=== PATIENT | female | born 1980 | race Caucasian/White ===

== ENCOUNTER 2017-02-10 17:38 | Emergency (ER) | payer OTHER, SELFPAY | END 2017-02-10 18:28 | disposition home or self-care (01) | PROVIDERS: Emergency Provider Nurse Practitioner; Visit Provider Nurse Practitioner | DX: O99.511 Diseases of the respiratory system complicating pregnancy, first trimester (principal); J11.1 Influenza due to unidentified influenza virus with other respiratory manifestations; O99.331 Smoking (tobacco) complicating pregnancy, first trimester; F17.210 Nicotine dependence, cigarettes, uncomplicated; Z3A.10 10 weeks gestation of pregnancy; Z79.899 Other long term (current) drug therapy | CPT/HCPCS: 87804; 99201 ==

== ENCOUNTER → 2017-12-26 18:20 | Outpatient (CLI) | payer OTHER, SELFPAY ==
[2017-12-26 19:00] LABS: Basophils # 0.1 K/mm3 (0-0.2); Basophils % 0.6 % (0.1-2.0); Eosinophils # 0.1 K/mm3 (0.0-0.4); Eosinophils % 0.9 % (0.1-12.0); Hematocrit 38.6 % (37.0-47.0); Hemoglobin 12.6 g/dL (12.2-16.2); Lymphocytes # 2.6 K/mm3 (0.7-4.5); Lymphocytes % 30.2 K/mm3 (10-50); Mean Corpuscular HGB Conc 32.6 g/dL (31.8-35.4); Mean Corpuscular Hemoglobin 29.9 pg (27.0-31.2); Mean Corpuscular Volume 91.8 fl (81-99); Mean Platelet Volume 9.3 fl (7.4-10.4); Monocytes # 0.4 K/mm3 (0.1-1.0); Monocytes % 4.7 % (1.7-9.3); Neutrophils # 5.4 K/mm3 (1.8-7.8); Neutrophils % 63.6 % (37.0-80.0); Platelet Count 247 K/mm3 (142-424); Red Cell Distribution Width 13.6 % (11.5-17.5); White Blood Count 8.5 K/mm3 (4.8-10.8)
[2017-12-26 19:37] LABS: Alanine Aminotransferase 45 U/L (12-78); Albumin Level 3.8 gm/dL (3.4-5.0); Albumin/Globulin Ratio 1.2 (1.1-1.8); Alkaline Phosphatase 108 U/L (46-116); Aspartate Amino Transferase 21 U/L (15-37); Bilirubin,Total 0.1 mg/dL (0.2-1.0); Blood Urea Nitrogen 16 mg/dL (7-18); Calcium 8.7 mg/dL (8.5-10.1); Carbon Dioxide 23 mmol/L (21.0-32.0); Chloride 107 mmol/L (98-107); Chol/HDL Ratio 2.9 (1-3.5); Cholesterol 136 mg/dL (140-200); Creatinine,Serum 1.04 mg/dL (0.55-1.02); Estimated Glomerular Filt Rate 59 ml/min (>60); GFR (African American) 72 ML/MIN (>60); Globulin 3.3 gm/dl (1.3-3.2); Glucose 101 mg/dL (74-106); HDL Cholesterol 47 mg/dL (29-89); LDL Cholesterol 39 mg/dL (0-130); Sodium 142 mmol/L (136-145); T4 (Thyroxine) 6.9 ug/dl (4.7-13.3); Total Protein,Serum 7.1 gm/dL (6.4-8.2); Triglycerides 250 mg/dL (30-200); VLDL Cholesterol 50 mg/dL (0-40)
[2017-12-28 14:43] LABS: Vitamin D 25 Hydroxy 25.4 ng/mL (30.0-100.0)
== END ==
PROVIDERS: Visit Provider Nurse Practitioner Family
DX: R53.83 Other fatigue (principal); Z23 Encounter for immunization
CPT/HCPCS: 80053; 80061; 82652; 84436; 84443; 85025

== ENCOUNTER → 2018-02-07 07:49 | Outpatient (CLI) | payer OTHER, SELFPAY ==
[2018-02-07 09:30] LABS: Erythrocyte Sedimentation Rate 14 mm/hr (0-20)
[2018-02-07 09:36] LABS: C-Reactive Protein 0.3 mg/L (0.0-0.9)
[2018-02-08 10:40] LABS: RA Latex Turbid. <10.0 IU/mL (0.0-13.9)
[2018-02-08 13:17] LABS: Anti-Centromere B Antibodies <0.2 AI (0.0-0.9); Anti-Jo-1 <0.2 AI (0.0-0.9); Anti-Smith Antibody 0.3 AI (0.0-0.9); Antichromatin Antibodies <0.2 AI (0.0-0.9); Antiscleroderma-70 Antibodies <0.2 AI (0.0-0.9); RNP Antibodies 0.4 AI (0.0-0.9); Sjogren's Anti-SS-A <0.2 AI (0.0-0.9); Sjogren's Anti-SS-B <0.2 AI (0.0-0.9)
[2018-02-08 15:41] LABS: Anti-DNA (DS) Ab Qn <1 IU/mL (0-9)
[2018-02-09 21:13] LABS: PTT-LA 36.7 sec (0.0-51.9); dRVVT 35.9 sec (0.0-47.0)
[2018-02-10 06:04] LABS: Lupus Reflex Interpretation Comment: (.)
[2018-02-10 06:05] LABS: Anti-Cyclic Citrullinated Pept 6 units (0-19)
== END ==
PROVIDERS: Visit Provider Nurse Practitioner Family
DX: M25.50 Pain in unspecified joint (principal); R53.83 Other fatigue
CPT/HCPCS: 36415; 85613; 85651; 86140; 86200; 86225; 86235; 86431

== ENCOUNTER → 2019-04-04 08:11 | Outpatient (CLI) | payer OTHER, SELFPAY ==
--- NOTE | 2019-04-04 08:13 | US_ITS ---
PROCEDURE: US GALLBLADDER CLINICAL INDICATION: ruq pain COMPARISON: No exams were available for comparison FINDINGS: Pancreas: Unremarkable/Not well seen Liver: Unremarkable. There is appropriate direction of blood flow within a non dilated portal vein. Right kidney: Unremarkable appearing. No hydronephrosis. Gallbladder: There are multiple gallstones present. No gallbladder wall thickening, pericholecystic fluid, or biliary dilatation. IMPRESSION: Cholelithiasis Dictated by: Robbie Kaur MD 04/04/2019 16:45 Electronically signed by Robbie Kaur MD in [place] 04/04/2019 16:45
== END ==
PROVIDERS: PCP Emergency Medicine; Visit Provider Emergency Medicine
DX: R10.11 Right upper quadrant pain (principal)
CPT/HCPCS: 76705

== ENCOUNTER 2019-08-27 01:37 | Observation (INO) | payer OTHER, SELFPAY ==
[2019-08-27] VITALS (13 sets, daily range): BP systolic 95–130; BP diastolic 47–83; PULSE 68–110; RESP 15–18; TEMP 36.7–37.2; O2SAT 96–100; BMI 36.9; BMI 37.0; BMI 37.2
--- NOTE | 2019-08-27 01:59 | ECG_ITS ---
APPROVED REPORT Exam: Resting ECG HR:91 bpm ECG Measurements Heart Rate 91 AXES MT 172 P 53 QRSd 104 QRS 52 QT 342 T 40 QTc 420 <Conclusion> Normal sinus rhythm Incomplete right bundle branch block Borderline ECG Electronically signed by : Bobby Matt, 08/27/2019 11:40:31
--- NOTE | 2019-08-27 02:00 | CT_ITS ---
PROCEDURE: CT ABDOMEN PELVIS W CON CLINICAL INDICATION: RUQ tenderness Right upper quadrant pain and tenderness with nausea and vomiting COMPARISON: CT ABDOMEN PELVIS WO CON from 03/21/2019 TECHNIQUE: IV Contrast: 75ML OPTIRAY 350 Oral Contrast None Axial images obtained with sagittal and coronal reformats. All CT scans at the facility use one or more dose reduction, viz: automated exposure control, ma/kV adjustment per patient size (including targeted exams where dose is matched to indication, i.e. head), or iterative reconstruction technique. FINDINGS: LOWER THORAX: No acute finding ABDOMEN & PELVIS: There are gallstones present. Gallbladder wall slightly thickened with hazy appearance and possible minimal amount of pericholecystic fluid. The liver, spleen, right adrenal gland, and pancreas have an unremarkable appearance. Left adrenal gland is slightly enlarged not significantly changed. There are nonobstructing punctate right renal calculi. No ureteral calculi. No hydronephrosis. Unremarkable appendix. Mild amount of retained colonic feces. Prior hysterectomy. There is a 3.8 cm left ovarian cyst. Small amount fluid is present in the pelvis. IMPRESSION: Cholelithiasis with mildly thickened gallbladder wall with suggestion of a minimal amount of pericholecystic fluid compatible with acute cholecystitis. Clinical correlation required Right nephrolithiasis Left ovarian cystic lesion. Consider nonemergent ultrasound for further evaluation Dictated by: Robbie Kaur MD 08/27/2019 08:13 Electronically signed by Robbie Kaur MD in [place] 08/27/2019 08:13
--- NOTE | 2019-08-27 02:00 | XR_ITS ---
PROCEDURE: XR CHEST 2V CLINICAL HISTORY: chest pain COMPARISON: No exams were available for comparison FINDINGS: The cardiomediastinal silhouette and pulmonary vascularity are within normal limits. The lungs are clear without infiltrates, suspicious nodules, or pleural effusions. No acute bony abnormalities. IMPRESSION: No acute findings. Dictated by: Robbie Kaur MD 08/27/2019 07:54 Electronically signed by Robbie Kaur MD in [place] 08/27/2019 07:54
[2019-08-27 02:11] LABS: Microscopic, Urine URINE MICROSCOPIC (MICROSCOPIC)
[2019-08-27 02:14] LABS: Basophils # 0.1 K/mm3 (0-0.2); Basophils % 0.6 % (0.1-2.0); Eosinophils # 0.1 K/mm3 (0.0-0.4); Eosinophils % 0.7 % (0.1-12.0); Hematocrit 41.7 % (37.0-47.0); Hemoglobin 14.3 g/dL (12.2-16.2); Lymphocytes # 3.2 K/mm3 (0.7-4.5); Lymphocytes % 27.2 % (10-50); Mean Corpuscular HGB Conc 34.2 g/dL (31.8-35.4); Mean Corpuscular Hemoglobin 31.8 pg (27.0-31.2); Mean Corpuscular Volume 92.9 fl (81-99); Mean Platelet Volume 8.6 fl (7.4-10.4); Monocytes # 0.6 K/mm3 (0.1-1.0); Monocytes % 4.8 % (1.7-9.3); Neutrophils # 7.8 K/mm3 (1.8-7.8); Neutrophils % 66.6 % (37.0-80.0); Platelet Count 222 K/mm3 (142-424); Red Blood Count 4.49 M/mm3 (4.20-5.40); Red Cell Distribution Width 12.8 % (11.5-17.5); White Blood Count 11.8 K/mm3 (4.8-10.8)
[2019-08-27 02:25] LABS: Alanine Aminotransferase 40 U/L (12-78); Albumin Level 4.5 g/dl (3.5-5.0); Albumin/Globulin Ratio 1.3 (1.1-1.8); Alkaline Phosphatase 87 U/L (38-126); Amylase 46 U/L (30-110); Anion Gap 13.9 mEq/L (5-15); Aspartate Amino Transferase 43 U/L (14-36); Bilirubin,Total 0.2 mg/dl (0.2-1.3); Blood Urea Nitrogen 22 mg/dl (7-17); Calcium 9.3 mg/dl (8.4-10.2); Carbon Dioxide 23 mmol/L (22.0-30.0); Chloride 102 mmol/L (98-107); Creatinine Clearance Estimated 191 mL/min (50-200); Estimated Glomerular Filt Rate 93 ml/min (>60); GFR (African American) 112 ML/MIN (>60); Globulin 3.5 g/dL (1.3-3.2); Glucose 111 mg/dl (74-100); Lipase 63 U/L (23-300); Potassium 3.9 mmoL/L (3.5-5.1); Sodium 135 mmol/L (136-145)
[2019-08-27 02:26] LABS: Appearance,Urine CLEAR (Clear); Bilirubin,Urine Negative (Negative); Blood, Urine Negative (Negative); Color,Urine YELLOW (Yellow); Glucose,Urine (UA) Negative (Negative); Ketones,Urine Negative (Negative); Leukocyte Esterase,Urine Negative (Negative); Nitrate,Urine Negative (Negative); Protein,Urine Negative (Negative); Specific Gravity, Urine 1.025 (1.005-1.030); Urobilinogen,Urine 0.2 EU/dl (0.2)
[2019-08-27 02:31] LABS: C-Reactive Protein 6.4 mg/L (0-4)
[2019-08-27 02:34] LABS: Amorphous Sediment,Urine Trace /lpf; WBC,Urine Occasional #/hpf (0-3)
[2019-08-27 02:41] LABS: Troponin I < 0.01 ng/ml (0.00-0.034)
--- NOTE | 2019-08-27 02:48 | PC.NURSE ---
pt to RAD
[2019-08-27 03:02] LABS: Erythrocyte Sedimentation Rate 15 mm/hr (0-20)
--- NOTE | 2019-08-27 03:12 | PC.NURSE ---
pt back from RAD
--- NOTE | 2019-08-27 03:26 | HMH.EDNVD ---
ED Disposition Clinical Impression: Cholecystitis, Obesity (BMI 30-39.9) Disposition: Admitted as Observation Condition on Discharge: Good Referrals: Vinnie Barnes MD [Primary Care Provider] - - Critical Care Critical Care Time: No Attestation: On 08/27/19, the high probability of a clinically significant, sudden or life threatening deterioration of the following system(s) required my full and direct attention, intervention and personal management. The time I documented below is in addition to time spent performing reported procedures but includes the following listed in this critical care notation. Medical Decision Making - Medical Records Medical records reviewed: Yes: I reviewed the patient's medical records. - Jorge Inquiry Pt receiving controlled substance: No Vital Signs: 08/27/19 01:38 08/27/19 02:08 08/27/19 03:15 Temperature 98.9 F Temperature Source Oral Pulse Rate [Left Radial] 110 H 80 73 Respiratory Rate 16 15 16 Blood Pressure [Right Arm] 124/78 103/55 L 108/83 L Blood Pressure Mean [Right Arm] 93 71 91 Blood Pressure Source [Right Arm] Automatic Cuff Automatic Cuff Automatic Cuff Blood Pressure Position [Right Arm] Sitting Sitting 02 Sat by Pulse Oximetry 97 96 99 Oxygen Delivery Method Room Air Room Air Room Air 08/27/19 03:33 Temperature Temperature Source Pulse Rate [Left Radial] 72 Respiratory Rate 16 Blood Pressure [Right Arm] 100/67 L Blood Pressure Mean [Right Arm] 78 Blood Pressure Source [Right Arm] Blood Pressure Position [Right Arm] 02 Sat by Pulse Oximetry 100 Oxygen Delivery Method Room Air - Lab Data Lab results reviewed: Yes: I reviewed the patient's lab results. Lab Results 08/27/19 01:40: Urine Color Yellow, Urine Appearance Clear, Urine pH 6.0, Ur Specific [place] 1.025, Urine Protein Negative, Urine Glucose (UA) Negative, Urine Ketones Negative, Urine Blood Negative, Urine Nitrate Negative, Urine Bilirubin Negative, Urine Urobilinogen 0.2, Ur Leukocyte Esterase Negative, Urine WBC Occasional, Ur Squamous Epith Cells 3-5, Amorphous Sediment Trace 08/27/19 01:50: WBC 11.8 H, RBC 4.49, Hgb 14.3, Hct 41.7, MCV 92.9, MCH 31.8 H, MCHC 34.2, RDW 12.8, Plt Count 222, MPV 8.6, Neut % (Auto) 66.6, Lymph % (Auto) 27.2, [place] % (Auto) 4.8, Eos % (Auto) 0.7, Baso % (Auto) 0.6, Neut # (Auto) 7.8, Lymph # (Auto) 3.2, [place] # (Auto) 0.6, Eos # (Auto) 0.1, Baso # (Auto) 0.1, ESR 15 08/27/19 01:50: Sodium 135 L, Potassium 3.9, Chloride 102, Carbon Dioxide 23, Anion Gap 13.9, BUN 22 H, Creatinine 0.70, Estimated Creat Clear 191, Estimated GFR 93, Est GFR ( Amer) 112, Glucose 111 H, Calcium 9.3, Total Bilirubin 0.2, AST 43 H, ALT 40, Alkaline Phosphatase 87, Troponin I < 0.01, C-Reactive Protein 6.4 H, Total Protein 8.0, Albumin 4.5, Globulin 3.5 H, Albumin/Globulin Ratio 1.3, Amylase 46, Lipase 63 Result diagrams: 08/27/19 01:50 08/27/19 01:50 Orders (Tests/Meds): ED MEDICATIONS Generic Name Dose Route Start Last Admin Trade Name Freq PRN Reason Stop Dose Admin Sodium Chloride 1,000 mls @ 999 mls/hr 08/27/19 02:15 08/27/19 02:06 Sod Chlor 0.9% 1000ml Bag IV 08/27/19 03:15 999 mls/hr .Q1H1M LILLIAN Administration Ertapenem 1 gm/ Sodium 50 mls @ 100 mls/hr 08/27/19 03:37 Chloride IV 08/27/19 03:38 ONCE ONE Protocol Sodium Chloride 8 ml 08/27/19 02:01 08/27/19 02:07 Sodium Chloride 0.9% 10ml Vial IV 09/26/19 02:00 8 ml NEEDED PRN Administration dilute pepcid Discontinued Medications Generic Name Dose Route Start Last Admin Trade Name Freq PRN Reason Stop Dose Admin Aspirin 324 mg 08/27/19 02:01 08/27/19 02:07 Aspirin 81mg Chewable Tablet PO 08/27/19 02:02 324 mg ONCE ONE Administration Famotidine 20 mg 08/27/19 02:01 08/27/19 02:07 Pepcid 20mg/2ml Vial IV 08/27/19 02:02 20 mg ONCE ONE Administration Ioversol 75 ml 08/27/19 03:21 08/27/19 03:21 Rad-Optiray 350 100ml Vial IV 08/26
--- NOTE | 2019-08-27 04:06 | PC.NURSE ---
report given to HAJA Oakley
--- NOTE | 2019-08-27 04:26 | PC.NURSE ---
pt arrived from the ED via wheel chair at 0400
--- NOTE | 2019-08-27 06:56 | HMH.PHAVTE ---
[facility] Pharmacy VTE Monitoring - Patient Demographics Admission date: 08/27/19 Report Date: 08/27/19 Time: 06:56 Allergies/Adverse Reactions: Patient Allergies No Known Allergies Allergy (Verified 08/27/19 02:02) Height: 1.75 m Weight: 113.54 kg Patient Problems: Current Active Problems Cholecystitis (Acute) Obesity (BMI 30-39.9) (Acute) - VTE Risk Labs: VTE Related Lab Results Hgb 14.3 g/dL (12.2-16.2) 08/27/19 01:50 Hct 41.7 % (37.0-47.0) 08/27/19 01:50 Plt Count 222 K/mm3 (142-424) 08/27/19 01:50 BUN 22 mg/dl (7-17) H 08/27/19 01:50 Creatinine 0.70 mg/dl (0.52-1.04) 08/27/19 01:50 Estimated Creat Clear 191 mL/min (50-200) 08/27/19 01:50 Was VTE Risk Assessment Performed: Yes VTE Score: 3 VTE Risk Level: Low Risk - Prophylaxis VTE Prophylaxis Ordered?: Yes Types of VTE Prophylaxis: TEDS Knee High Location of Applied Device: Bilateral Lower Extremeties - VTE Diagnosis Confirmed Treatment or plan recommended: Continue Current Treatment
--- NOTE | 2019-08-27 07:53 | PC.NURSE ---
was beeped and i spoke with him of consult
--- NOTE | 2019-08-27 08:00 | US_ITS ---
PROCEDURE: US GALLBLADDER CLINICAL INDICATION: abd pain/abn ct COMPARISON: CT ABDOMEN PELVIS W CON from 08/27/2019 FINDINGS: Pancreas: Unremarkable. Pancreatic tail is not well seen Liver: Unremarkable. There is appropriate direction of blood flow within a non dilated portal vein. Right kidney: Unremarkable appearing. No hydronephrosis. Gallbladder: There are multiple gallstones present. No gallbladder wall thickening, pericholecystic fluid, or biliary dilatation is evident. Common bile duct is 3 mm. IMPRESSION: Cholelithiasis. No gallbladder wall thickening pericholecystic fluid or biliary dilatation Dictated by: Robbie Kaur MD 08/27/2019 09:50 Electronically signed by Robbie Kaur MD in [place] 08/27/2019 09:50
--- NOTE | 2019-08-27 08:35 | PC.NURSE ---
PT OFF FLOOR AT THIS TIME TO RADIOLOGY PER W/C FOR GALLBLADDER U/S
--- NOTE | 2019-08-27 08:35 | HMH.GSCON ---
*Admission Date: 08/27/19 *Reason for consult:: Gallstones *History of present illness: Patient is a 39-year-old white female with known history of gallstones. She has had some symptoms consistent with symptomatic gallstones and biliary colic for several months. She had undergone gallbladder ultrasound in March which revealed uncomplicated cholelithiasis. She had seen Dr. Castaneda in the office and was scheduled for cholecystectomy in May. However, due to the COVID pandemic this had to be rescheduled. She was rescheduled for June for cholecystectomy but, according to her, was unable to proceed due to her job. Yesterday she had some substernal burning pain. Last night she awoke with this pain in the substernal chest area with radiation around to the right thoracoabdominal area and into the back and right shoulder. She developed nausea. She presented to the emergency department where she was seen and evaluated. She was admitted for inpatient management. Surgical consultation was obtained. She feels better at this point. Review of Systems - Review of Systems Review of systems:: pertinent systems reviewed and negative unless documented below - *Neurologic Denies localized weakness, Denies seizure-like activity [facility] History I have reviewed the patient's past medical history: Yes Medical History: Reports:: Anxiety, Depression, Hypertension, Kidney Stones, Migraine Denies:: Cancer, Diabetes Mellitus Type 1, Diabetes Mellitus Type 2, MRSA *Have you ever received a pneumonia vaccine?: No *Have you received a flu vaccine this season?: Yes Other Medical History: Reports: Fibromyalgia Other Surgeries: Yes: Diagnostic Lap, Hysterectomy-Partial, Tubal Ligation, Other (tumor from neck removed) Amputation: No Fractures: No - *Social History Educational Level: Attended College Smoking Status: Current every day smoker Tobacco Type: cigarettes # Packs/Day (cigarettes): 1 #Yrs smoked (if former smoker): 20 Alcohol Intake: current Alcohol Intake Frequency:: holidays/special occasions only Substance Use Type: denies use *Occupational Status:: employed Housing: apartment Household Members: children *Travel in the last 8 weeks: None - Psychiatric History Pschychiatric History:: Reports:: Anxiety, Depression Family Hx:: Heart Attack, Hypertension, Thyroid Disorder Meds Home Medications Medication Instructions Recorded Confirmed Type Acetaminophen [Tylenol 500mg 1,000 mg PO TIDP PRN 08/27/19 08/27/19 History tablet] Allergies Allergy/AdvReac Type Severity Reaction Status Date / Time No Known Allergies Allergy Verified 08/27/19 02:02 Exam Vital signs and Labs for Last 24 Hours: Temp Pulse Resp BP Pulse Ox 98.2 F 70 16 95/51 L 97 08/27/19 07:53 08/27/19 07:53 08/27/19 07:53 08/27/19 07:53 08/27/19 08:00 Laboratory Results - last 24 hr 08/27/19 01:40: Urine Color Yellow, Urine Appearance Clear, Urine pH 6.0, Ur Specific [place] 1.025, Urine Protein Negative, Urine Glucose (UA) Negative, Urine Ketones Negative, Urine Blood Negative, Urine Nitrate Negative, Urine Bilirubin Negative, Urine Urobilinogen 0.2, Ur Leukocyte Esterase Negative, Urine WBC Occasional, Ur Squamous Epith Cells 3-5, Amorphous Sediment Trace 08/27/19 01:50: WBC 11.8 H, RBC 4.49, Hgb 14.3, Hct 41.7, MCV 92.9, MCH 31.8 H, MCHC 34.2, RDW 12.8, Plt Count 222, MPV 8.6, Neut % (Auto) 66.6, Lymph % (Auto) 27.2, [place] % (Auto) 4.8, Eos % (Auto) 0.7, Baso % (Auto) 0.6, Neut # (Auto) 7.8, Lymph # (Auto) 3.2, [place] # (Auto) 0.6, Eos # (Auto) 0.1, Baso # (Auto) 0.1, ESR 15 08/27/19 01:50: Sodium 135 L, Potassium 3.9, Chloride 102, Carbon Dioxide 23, Anion Gap 13.9, BUN 22 H, Creatinine 0.70, Estimated Creat Clear 191, Estimated GFR 93, Est GFR ( Amer) 112, Glucose 111 H, Calcium 9.3, Total Bilirubin 0.2, AST 43 H, ALT 40, Alkaline Phosphatase 87, Troponin I < 0.01, C-Reactive Protein 6.4 H, Total Protein 8.0, Albumin 4.5, Globulin 3.5 H, Albumin/Globuli
--- NOTE | 2019-08-27 08:38 | HMH.HP ---
*Admission Date: 08/27/19 *Chief complaint: abd pain *History of present illness: 39 yr old female presented to ed stating she was awaken with nausea with chest pain located at her sternum that wraps around her right side to her back since midnight tonight. Patient describes it as a tightness and burning sensating that radiates around back,rating a 6 on a 0-10 scale. Patient also complains of RUQ tenderness when palpating and reports that she was supposed to have her gallbladder out in may but surgery was cancelled due to COVID. Patient admitted for surgery consult and further work up. [facility] History I have reviewed the patient's past medical history: Yes Medical History: Reports:: Anxiety, Depression, Hypertension, Kidney Stones, Migraine Denies:: Cancer, Diabetes Mellitus Type 1, Diabetes Mellitus Type 2, MRSA *Have you ever received a pneumonia vaccine?: No *Have you received a flu vaccine this season?: Yes Other Medical History: Reports: Fibromyalgia Other Surgeries: Yes: Diagnostic Lap, Hysterectomy-Partial, Tubal Ligation, Other (tumor from neck removed) Amputation: No Fractures: No - *Social History Educational Level: Attended College Smoking Status: Current every day smoker Tobacco Type: cigarettes # Packs/Day (cigarettes): 1 #Yrs smoked (if former smoker): 20 Alcohol Intake: current Alcohol Intake Frequency:: holidays/special occasions only Substance Use Type: denies use *Occupational Status:: employed Housing: apartment Household Members: children *Travel in the last 8 weeks: None - Psychiatric History Pschychiatric History:: Reports:: Anxiety, Depression Family Hx:: Heart Attack, Hypertension, Thyroid Disorder Review of Systems - Review of Systems Review of systems:: pertinent systems reviewed and negative unless documented below - Constitutional Denies body ache(s), Denies fatigue, Denies weight gain - Eyes Denies blurry vision - ENT Denies dry mouth - *Cardiovascular Denies chest pain at rest, Denies chest pain with activity - *Respiratory Denies change in phlegm color - *Gastrointestinal Reports abdominal pain, Reports nausea - *Genitourinary Denies abnormal periods, Denies urinary incontinence - *Musculoskeletal Denies decreased muscle mass, Denies stiffness - Integumentary/Breasts Denies bleeding lesions, Denies rash - *Neurologic Denies localized weakness, Denies seizure-like activity - Psychiatric Denies abnormal sleep pattern, Denies anxiety - Endocrine Denies flushing - Hematologic/Lymphatic Denies enlarged lymph nodes Meds Home Medications Medication Instructions Recorded Confirmed Type Acetaminophen [Tylenol 500mg 1,000 mg PO TIDP PRN 08/27/19 08/27/19 History tablet] Allergies Allergy/AdvReac Type Severity Reaction Status Date / Time No Known Allergies Allergy Verified 08/27/19 02:02 Exam Vital signs and Labs for Last 24 Hours: Temp Pulse Resp BP Pulse Ox 98.2 F 70 16 95/51 L 97 08/27/19 07:53 08/27/19 07:53 08/27/19 07:53 08/27/19 07:53 08/27/19 08:00 Laboratory Results - last 24 hr 08/27/19 01:40: Urine Color Yellow, Urine Appearance Clear, Urine pH 6.0, Ur Specific [place] 1.025, Urine Protein Negative, Urine Glucose (UA) Negative, Urine Ketones Negative, Urine Blood Negative, Urine Nitrate Negative, Urine Bilirubin Negative, Urine Urobilinogen 0.2, Ur Leukocyte Esterase Negative, Urine WBC Occasional, Ur Squamous Epith Cells 3-5, Amorphous Sediment Trace 08/27/19 01:50: WBC 11.8 H, RBC 4.49, Hgb 14.3, Hct 41.7, MCV 92.9, MCH 31.8 H, MCHC 34.2, RDW 12.8, Plt Count 222, MPV 8.6, Neut % (Auto) 66.6, Lymph % (Auto) 27.2, [place] % (Auto) 4.8, Eos % (Auto) 0.7, Baso % (Auto) 0.6, Neut # (Auto) 7.8, Lymph # (Auto) 3.2, [place] # (Auto) 0.6, Eos # (Auto) 0.1, Baso # (Auto) 0.1, ESR 15 08/27/19 01:50: Sodium 135 L, Potassium 3.9, Chloride 102, Carbon Dioxide 23, Anion Gap 13.9, BUN 22 H, Creatinine 0.70, Estimated Creat Clear 191, Estimate
--- NOTE | 2019-08-27 09:12 | PC.NURSE ---
PT RETURNED FOR RADIOLOGY AT THIS TIME
[2019-08-27 13:18] LABS: Coronavirus 19 IgG Antibody Negative (Negative); Coronavirus 19 IgM Antibody Negative (Negative)
--- NOTE | 2019-08-27 18:57 | PC.NURSE ---
Alert and oriented x4. Pt has been up to the chair today and ambulates independently in her room. She reports pain in her lower back and abd which has been treated effectively with prn pain meds. Zofran given x1 for nausea with her reporting relief. 1300ml of urine out this shift. No further complaints or requests at this time.
--- NOTE | 2019-08-27 19:18 | PC.NURSE ---
report given to perry
[2019-08-28] VITALS (26 sets, daily range): BP systolic 95–127; BP diastolic 54–84; PULSE 54–83; RESP 14–25; TEMP 36.5–43; O2SAT 93–99; BMI 37.0
--- NOTE | 2019-08-28 02:33 | PC.NURSE ---
A&OX4. PT HAS TOLERATED ROOM AIR WELL THROUGHOUT SHIFT. RESPIRATIONS REGULAR AND UNLABORED. LUNG SOUNDS BILATERALLY CLEAR. NO COUGH NOTED. NO EDEMA NOTED. HEART RATE REGULAR. +2 PULSES NOTED THROUGHOUT. SOFT AND TENDER ABDOMEN. BOWEL SOUNDS HEARD IN ALL 4 QUADRANTS. PT AMBULATES INDEPENDENTLY TO THE RESTROOM. STEADY GAIT NOTED. PT TOLERATES WELL. NS INFUSING AT 100ML/HR. PAIN REPORTED THROUGHOUT SHIFT IN RUQ AND LOWER BACK. MORPHINE 4MG IV ADMINISTERED NEEDED PER APR. ON REASSESSMENT, PT STATES PAIN IS TOLERABLE. C/O FAGAN, ADMINISTERED PRN TYLENOL PER MAR, ON REASSESSMENT PT REPORTED FAGAN WAS RELIEVED AND TOLERABLE. ALSO C/O NAUSEA, MEDICATED PER APR WITH PRN ZOFRAN, ON REASSESSMENT PT NOTED RESTING IN BED WITH EYES CLOSED. PT HAS REMAINED NPO SINCE MIDNIGHT. PT RECEIVED SHOWER IN PREPARATION FOR SURGERY CONSULT IN AM. PT CURRENTLY RESTING IN BED. BED IN LOWEST POSITION. CALL LIGHT WITHIN REACH. VSS. NO CONCERNS AT THIS TIME. WILL CONTINUE TO MONITOR.
--- NOTE | 2019-08-28 03:03 | PC.NURSE ---
PT HASN'T SLEPT WELL TONIGHT. OFFERED TO CALL THE DR AND THE PT STATED SHE WOULD BE OK. PROVIDED PT WITH WARM BLANKETS AND EXTRA PILLOWS TO HELP GET HER A LITTLE MORE COMFORTABLE.
[2019-08-28 06:42] LABS: Basophils % 0.5 % (0.1-2.0); Eosinophils # 0.1 K/mm3 (0.0-0.4); Eosinophils % 1.2 % (0.1-12.0); Hemoglobin 11.7 g/dL (12.2-16.2); Lymphocytes % 40.4 % (10-50); Mean Corpuscular HGB Conc 33.3 g/dL (31.8-35.4); Mean Corpuscular Hemoglobin 31.7 pg (27.0-31.2); Mean Corpuscular Volume 95.2 fl (81-99); Mean Platelet Volume 9.9 fl (7.4-10.4); Monocytes # 0.4 K/mm3 (0.1-1.0); Monocytes % 4.7 % (1.7-9.3); Neutrophils % 53.3 % (37.0-80.0); Platelet Count 174 K/mm3 (142-424); Red Blood Count 3.68 M/mm3 (4.20-5.40); Red Cell Distribution Width 12.7 % (11.5-17.5); White Blood Count 7.4 K/mm3 (4.8-10.8)
[2019-08-28 06:50] LABS: Chloride 109 mmol/L (98-107); Potassium 4.1 mmoL/L (3.5-5.1); Sodium 137 mmol/L (136-145)
[2019-08-28 06:53] LABS: Anion Gap 5.1 mEq/L (5-15); Blood Urea Nitrogen 11 mg/dl (7-17); Carbon Dioxide 27 mmol/L (22.0-30.0); Creatinine Clearance Estimated 167 mL/min (50-200); Estimated Glomerular Filt Rate 79 ml/min (>60); GFR (African American) 96 ML/MIN (>60); Glucose 90 mg/dl (74-100)
--- NOTE | 2019-08-28 08:22 | HMH.GSPN ---
Subjective Patient reports: no new complaints, still having pain Exam Vital signs and Labs for Last 24 Hours: Temp Pulse Resp BP Pulse Ox 98.2 F 61 18 96/54 L 99 08/28/19 07:39 08/28/19 07:39 08/28/19 07:39 08/28/19 07:39 08/28/19 07:39 Laboratory Results - last 24 hr 08/27/19 01:50: SARS-CoV-2 IgG Ab (Rapid) Negative, SARS-CoV-2 IgM Ab (Rapid) Negative 08/28/19 06:25: WBC 7.4 D, RBC 3.68 L, Hgb 11.7 L, Hct 35.0 L, MCV 95.2, MCH 31.7 H, MCHC 33.3, RDW 12.7, Plt Count 174, MPV 9.9, Neut % (Auto) 53.3, Lymph % (Auto) 40.4, [place] % (Auto) 4.7, Eos % (Auto) 1.2, Baso % (Auto) 0.5, Neut # (Auto) 4.0, Lymph # (Auto) 3.0, [place] # (Auto) 0.4, Eos # (Auto) 0.1, Baso # (Auto) 0.0 08/28/19 06:25: Sodium 137, Potassium 4.1, Chloride 109 H, Carbon Dioxide 27, Anion Gap 5.1, BUN 11 D, Creatinine 0.80, Estimated Creat Clear 167, Estimated GFR 79, Est GFR ( Amer) 96, Glucose 90, Calcium 8.0 L D I & O for Last 24 hours: Intake & Output 08/25/19 08/26/19 08/27/19 08/28/19 11:59 11:59 11:59 11:59 Intake Total 238 / 238 3668 / 3668 Output Total 300 / 500 2150 / 2150 Balance -62 / -262 1518 / 1518 Weight 250 lb 5 oz 250 lb 3 oz - Constitutional no acute distress - *Routine Respiratory Exam Absent: respiratory distress - *Routine Cardiovascular Exam Present: RRR - *Routine Abdominal Exam Present: soft Progress Note: A&P (1) Cholecystitis Status: Acute Current Visit: Yes (2) Obesity (BMI 30-39.9) Status: Acute Current Visit: Yes (3) Abdominal pain Status: Acute Current Visit: Yes (4) CCC (chronic calculous cholecystitis) Status: Acute Assessment and plan: She is scheduled for laparoscopic cholecystectomy (later today) I have discussed the risks and benefits including, but not limited to: Bleeding Infection Damage to surrounding tissue Inherent risks of sedation The patient agrees to proceed. Current Visit: Yes (5) Recurrent biliary colic Status: Acute Current Visit: Yes
--- NOTE | 2019-08-28 08:54 | HMH.ACPN2 ---
Internal Medicine - PN: Subj *Date: 08/28/19 *Time: 08:54 Interval history: 39-year-old female patient walking in room, reports she is feeling a little bit better still reports right upper quadrant abdominal pain radiating to back. Surgery seen this morning and scheduled tentatively scheduled for laparoscopic cholecystectomy (later today). She is agreeable to this Exam Vital signs and Labs for Last 24 Hours: Temp Pulse Resp BP Pulse Ox 98.2 F 61 18 96/54 L 99 08/28/19 07:39 08/28/19 07:39 08/28/19 07:39 08/28/19 07:39 08/28/19 07:39 Laboratory Results - last 24 hr 08/27/19 01:50: SARS-CoV-2 IgG Ab (Rapid) Negative, SARS-CoV-2 IgM Ab (Rapid) Negative 08/28/19 06:25: WBC 7.4 D, RBC 3.68 L, Hgb 11.7 L, Hct 35.0 L, MCV 95.2, MCH 31.7 H, MCHC 33.3, RDW 12.7, Plt Count 174, MPV 9.9, Neut % (Auto) 53.3, Lymph % (Auto) 40.4, [place] % (Auto) 4.7, Eos % (Auto) 1.2, Baso % (Auto) 0.5, Neut # (Auto) 4.0, Lymph # (Auto) 3.0, [place] # (Auto) 0.4, Eos # (Auto) 0.1, Baso # (Auto) 0.0 08/28/19 06:25: Sodium 137, Potassium 4.1, Chloride 109 H, Carbon Dioxide 27, Anion Gap 5.1, BUN 11 D, Creatinine 0.80, Estimated Creat Clear 167, Estimated GFR 79, Est GFR ( Amer) 96, Glucose 90, Calcium 8.0 L D I & O for Last 24 hours: Intake & Output 08/25/19 08/26/19 08/27/19 08/28/19 23:59 23:59 23:59 23:59 Intake Total 2968 / 2968 938 / 938 Output Total 1300 / 2050 1150 / 1150 Balance 1668 / 918 -212 / -212 Weight 251 lb 5.231 oz 250 lb 3 oz - Constitutional no acute distress - *Routine HEENT Exam Head: Present: normocephalic ENT: Present: mucous membranes moist - *Routine Neck Exam Present: full ROM, trachea midline. Absent: JVD, tracheal deviation - *Routine Respiratory Exam Present: CTA bilaterally. Absent: accessory muscle use - *Routine Cardiovascular Exam Present: RRR - *Routine Abdominal Exam Present: soft, normoactive bowel sounds, tenderness - *Routine Extremities Exam Present: full ROM, pulses intact - *Routine Skin Exam Present: intact, warm. Absent: erythema, jaundice - *Routine Neurological Exam Present: alert, oriented X3, normal reflexes. Absent: altered mental status - Routine Psychiatric Exam Present: normal affect, normal thought process Assessment and Plan (1) Cholecystitis Current visit: Yes Status: Acute Category: Medical Code(s): K81.9 - Cholecystitis, unspecified (2) Obesity (BMI 30-39.9) Current visit: Yes Status: Acute Category: Medical Code(s): E66.9 - Obesity, unspecified (3) Abdominal pain Current visit: Yes Status: Acute Qualifiers: Abdominal location: right upper quadrant Qualified Code(s): R10.11 - Right upper quadrant pain Category: Medical Code(s): R10.9 - Unspecified abdominal pain (4) CCC (chronic calculous cholecystitis) Current visit: Yes Status: Acute Category: Medical Code(s): K80.10 - Calculus of gallbladder with chronic cholecystitis without obstruction (5) Recurrent biliary colic Current visit: Yes Status: Acute Category: Medical Code(s): K80.50 - Calculus of bile duct without cholangitis or cholecystitis without obstruction - Assessment and plan all Dx Assessment and Plan for all problems:: Rounded with Dr. Barnes, all orders per Dr. Barnes: 1. Tentatively scheduled for laparoscopic cholecystectomy (later today)
--- NOTE | 2019-08-28 09:51 | PC.NURSE ---
spoke with Marilu at dr. armstrong office regarding pt c/o migraine. marilu stated she will speak to dr. armstrong.
--- NOTE | 2019-08-28 10:40 | PC.NURSE ---
preop called and is aware of paperwork not prepared for surgery, states they are aware they are to do it. pt was refusing to take a shower because of her migraine. pt states she is going to take one now since she is having the surgery sooner.
--- NOTE | 2019-08-28 10:54 | PC.NURSE ---
pt off floor with surgery staff.
--- NOTE | 2019-08-28 11:41 | P.PN_ITS ---
[facility] Anesthesia Checklist - Structural Data Admitted From: Inpatient Planned Operative Procedure/s: lap duane Consent for Planned Operative Procedure(s) Verified: Yes - Airway Assessment C-Spine Mobility Assessed: Yes TMJ Mobility Assessed: Yes Dentition: Good Dentition - Neurological Assessment Level of Consciousness: Awake, Alert - Anesthesia Plan Anesthesia Risk discussed: Yes Anesthesia Plan: Verified ASA Class: II Anesthesia Type: General [facility] History I have reviewed the patient's past medical history: Yes Medical History: Reports:: Anxiety, Depression, Hypertension, Kidney Stones, Migraine Denies:: Cancer, Diabetes Mellitus Type 1, Diabetes Mellitus Type 2, MRSA *Have you ever received a pneumonia vaccine?: No *Have you received a flu vaccine this season?: Yes Other Medical History: Reports: Fibromyalgia Anesthesia experience/problems:: none Other Surgeries: Yes: Diagnostic Lap, Hysterectomy-Partial, Tubal Ligation, Other (tumor from neck removed) Amputation: No Fractures: No - *Social History Educational Level: Attended College Smoking Status: Current every day smoker Tobacco Type: cigarettes # Packs/Day (cigarettes): 1 #Yrs smoked (if former smoker): 20 Alcohol Intake: current Alcohol Intake Frequency:: holidays/special occasions only Substance Use Type: denies use *Occupational Status:: employed Housing: apartment Household Members: children *Travel in the last 8 weeks: None - Psychiatric History Pschychiatric History:: Reports:: Anxiety, Depression Family Hx:: Heart Attack, Hypertension, Thyroid Disorder
--- NOTE | 2019-08-28 12:35 | HMH.OPNOTE ---
Date of procedure: 08/28/19 Pre-op Diagnosis:: Chronic calculus cholecystitis Post-op Diagnosis:: Same Procedure performed:: Laparoscopic cholecystectomy Surgeon:: Danyel Castaneda MD GLOBAL COMPENSATION DIRECTOR:: Vamshi Lam Anesthesia: GETA Estimated blood loss (mL): 15 Operative findings:: Enlarged/distended gallbladder Gallbladder wall thickening Fairly significant thickening around infundibulum Enlarged node of Calot Operative note:: After informed consent was obtained, the patient was taken to the operating room and placed in the supine position. General anesthesia was induced and the abdomen was prepped and draped in a sterile fashion. After infiltration with local anesthetic an infraumbilical incision was made. A Veress needle was placed in position. The abdomen was insufflated. A 5 mm optical trocar was placed in position. Under direct visualization, a 12 mm trocar was placed in the subxiphoid position and 2 additional 5 mm trocars were placed in the right upper quadrant. The gallbladder was elevated up and over the liver margin. The tissue around the cystic duct was carefully dissected. 3 clips were placed proximally and the duct was transected with harmonic dinah. Harmonic dinah were then utilized to dissect the gallbladder away from the liver margin with careful attention to the control of the cystic artery. The gallbladder was placed in a retrieval bag and removed through the subxiphoid trocar site. The right upper quadrant was thoroughly irrigated. No active bleeding or bile leak was noted. Fascia at the subxiphoid trocar site was reapproximated utilizing 0 Ethibond. The remaining trocars were removed. All wounds were irrigated and skin was closed with 4-0 Monocryl in a subcuticular fashion. Steri-Strips were applied. The patient's anesthetic agents were reversed and extubation was completed prior to transfer to recovery in stable condition. Condition: stable Disposition: PACU Specimens:: Gallbladder Complications:: No immediate
--- NOTE | 2019-08-28 12:45 | P.PN_ITS ---
[facility] Anesthesia Record Part I Intake, IV Amount: 1,600 Estimated blood loss (mL): 15 Urine output (mL): 0 Blood Pressure: 113/84 SaO2: 96 Pulse Rate: 60 Respiratory Rate: 16 Temperature: 97.9 F Patient is:: Drowsy, Stable Stable to PACU at:: 12:41
--- NOTE | 2019-08-28 19:34 | PC.NURSE ---
this out put was from 183
--- NOTE | 2019-08-28 19:46 | PC.NURSE ---
pt has done well since surgery. pt has been up walking to bathroom and sitting up to chair. c/o of abd pain x1 prn med given with relief. all dressing are CDI except the top dressing has sanguinous drainage. will cont. to monitor. vss. will cont. to monitor.
[2019-08-29 04:00] VITALS: BP 100/53; PULSE 72; RESP 18; TEMP 37.3; O2SAT 95
[2019-08-29 04:45] VITALS: BMI 38.1
--- NOTE | 2019-08-29 04:46 | PC.NURSE ---
A&OX4. Lungs clear throughout. Pt epigastric lap tefla dressing saturated. Pt has C/O pain twice this shift medicated per APR. Pt has ambulated twice in hallway and tolerated well. Pt has rested well after PRN sleep aid
[2019-08-29 07:45] VITALS: BP 107/52; PULSE 85; RESP 16; TEMP 36.9; O2SAT 96
--- NOTE | 2019-08-29 08:45 | HMH.GSPN ---
Subjective Patient reports: feels better Exam Vital signs and Labs for Last 24 Hours: Temp Pulse Resp BP Pulse Ox 98.4 F 85 16 107/52 L 96 08/29/19 07:45 08/29/19 07:45 08/29/19 07:45 08/29/19 07:45 08/29/19 07:45 I & O for Last 24 hours: Intake & Output 08/26/19 08/27/19 08/28/19 08/29/19 11:59 11:59 11:59 11:59 Intake Total 238 / 238 3668 / 3668 4438 / 4438 Output Total 300 / 500 2150 / 2150 3400 / 3400 Balance -62 / -262 1518 / 1518 1038 / 1038 Weight 250 lb 5 oz 250 lb 3 oz 257 lb 6 oz - Constitutional no acute distress - *Routine Respiratory Exam Absent: respiratory distress - *Routine Cardiovascular Exam Present: RRR - *Routine Abdominal Exam Present: soft Comments: dressings intact. no erythema. Progress Note: A&P (1) Cholecystitis Status: Acute Current Visit: Yes (2) Obesity (BMI 30-39.9) Status: Acute Current Visit: Yes (3) Abdominal pain Status: Acute Current Visit: Yes (4) CCC (chronic calculous cholecystitis) Status: Acute Assessment and plan: Overall, doing well status post laparoscopic cholecystectomy. Okay from surgical standpoint for discharge home with outpatient follow-up No heavy lifting Slowly advance diet at home as tolerated Current Visit: Yes (5) Recurrent biliary colic Status: Acute Current Visit: Yes
--- NOTE | 2019-08-29 09:32 | HMH.ANESII ---
[facility] Anesthesia Record Part II Discharge Time: 13:11 Destination: floor PACU nurse assessment reviewed?: Yes Patient Condition:: Good Anesthesia Complications:: None Swallowing reflex intact?: Yes Cyanosis?: No Blood Pressure: 100/60 Pulse Rate: 77 Temperature: 98.1 F Mental Status: Alert & Oriented Pain level:: 0 Nausea and/or vomitting:: None Intake, IV Amount: 1,500
[2019-08-29 09:33] VITALS: BP 100/60; PULSE 77; TEMP 36.7
--- NOTE | 2019-08-29 10:08 | HMH.DCSUM ---
General - General Admission date:: 08/27/19 Discharge date: 08/29/19 HPI HPI: 39 yr old female presented to ed stating she was awaken with nausea with chest pain located at her sternum that wraps around her right side to her back since midnight tonight. Patient describes it as a tightness and burning sensating that radiates around back,rating a 6 on a 0-10 scale. Patient also complains of RUQ tenderness when palpating and reports that she was supposed to have her gallbladder out in may but surgery was cancelled due to COVID. Patient admitted for surgery consult and further work up. Hospital Course Hospital Course: pt has did well in the hospital with ivf and pain meds - she was seen by surg -tient is a 39-year-old white female with known history of gallstones. She has had some symptoms consistent with symptomatic gallstones and biliary colic for several months. She had undergone gallbladder ultrasound in March which revealed uncomplicated cholelithiasis. She had seen Dr. Castaneda in the office and was scheduled for cholecystectomy in May. However, due to the COVID pandemic this had to be rescheduled. She was rescheduled for June for cholecystectomy but, according to her, was unable to proceed due to her job. Yesterday she had some substernal burning pain. Last night she awoke with this pain in the substernal chest area with radiation around to the right thoracoabdominal area and into the back and right shoulder. She developed nausea. She presented to the emergency department where she was seen and evaluated. She was admitted for inpatient management. Surgical consultation was obtained. She feels better at this point. pt had gb surg-Date of procedure: 08/28/19 Pre-op Diagnosis:: Chronic calculus cholecystitis Post-op Diagnosis:: Same Procedure performed:: Laparoscopic cholecystectomy Surgeon:: Danyel Castaneda MD OPERATIONS MANAGER STATION:: Vamshi Lam Anesthesia: GETA Estimated blood loss (mL): 15 Operative findings:: Enlarged/distended gallbladder Gallbladder wall thickening Fairly significant thickening around infundibulum Enlarged node of Calot pt feels better and hernandez diet and activity and labs stable and will be released to see pcp and surg in follow up Objective Vital signs: Temp Pulse Resp BP Pulse Ox 98.1 F 77 16 100/60 L 96 08/29/19 09:33 08/29/19 09:33 08/29/19 07:45 08/29/19 09:33 08/29/19 07:45 no acute distress - *Routine HEENT Exam Head: Present: normocephalic Eye: Present: EOMI, PERRL ENT: Present: mucous membranes moist - *Routine Neck Exam Present: supple. Absent: JVD - *Routine Respiratory Exam Present: CTA bilaterally - *Routine Cardiovascular Exam Present: RRR. Absent: murmur - *Routine Abdominal Exam Present: soft Comments: stable post -op - *Routine Extremities Exam Absent: calf tenderness - *Routine Skin Exam Present: intact - *Routine Neurological Exam Present: alert, CN II-XII intact - Routine Psychiatric Exam Present: normal affect DS: Diagnosis - Discharge Diagnosis (1) Cholecystitis Status: Acute (2) Obesity (BMI 30-39.9) Status: Acute (3) Abdominal pain Status: Acute (4) CCC (chronic calculous cholecystitis) Status: Acute (5) Recurrent biliary colic Status: Acute Discharge Plan - Patient Discharge Instructions ACTIVITY: Continue current activity DIET: advance to your usual diet Patient Instructions: DI for Cholecystectomy, DI for Surgical Site Infection, DI for Cholecystitis - Follow up Plan Follow up with: Danyel Castaneda MD [Staff Physician] - (1-2 weeks) Disposition: Home, Self-Prison Medications: Home Medications Medication Instructions Recorded Confirmed Type Acetaminophen [Tylenol 500mg 1,000 mg PO TIDP PRN 08/27/19 08/27/19 History tablet] Prescriptions/Medication Reconciliation: Discontinued Acetaminophen [Tylenol 500mg tablet] 1,000 mg PO TIDP PRN P
--- NOTE | 2019-08-29 11:08 | DIET.NUTRFU ---
Pt has had good toleration liquid diet, no c/o abdominal symptoms. Weight remained stable t/o stay with a 6# weight gain post op. Low fat diet education provided and pt encouraged to contact me post dc with any questions or concerns.
== END 2019-08-29 11:10 | disposition home or self-care (01) ==
LOC: ER 03:43 → 2ND 04:53
PROVIDERS: Nurse Practitioner Family; Surgery; Admitting Provider Emergency Medicine; Emergency Provider Emergency Medicine; PCP Emergency Medicine; Visit Provider Emergency Medicine
PROC: 0FT44ZZ Resection of Gallbladder, Percutaneous Endoscopic Approach (ICD-10-PCS; CPT 47562; principal; 2019-08-28 12:15)
DX: K80.10 Calculus of gallbladder with chronic cholecystitis without obstruction (principal); I10 Essential (primary) hypertension; Z72.0 Tobacco use
CPT/HCPCS: 47562; 36415; 71046; 74177; 76705; 80048; 80053; 81001; 82150; 83690; 84484; 85025; 85651; 86140; 86328; 88304; 93005; 96365; 96367; 96375; 99284; G0378; J1335; J2405; J2710; Q9967

== ENCOUNTER 2019-10-18 20:02 | Emergency (ER) | payer OTHER, SELFPAY ==
[2019-10-18 20:20] VITALS: BP 126/85; PULSE 117; RESP 19; O2SAT 98; BMI 38.4
[2019-10-18 20:32] LABS: UTC Strep Screen (Rapid) Negative (Negative)
--- NOTE | 2019-10-18 20:51 | HMH.EDUTC ---
[facility] [place] Disposition Clinical Impression: Sinusitis Qualifiers: Sinusitis location: unspecified location Chronicity: acute Recurrence: non-recurrent Qualified Code(s): J01.90 - Acute sinusitis, unspecified Disposition: Home, Self-Care Condition on Discharge: Good Instructions: Sinusitis, DI for Sinusitis Additional Instructions: Drink plenty of fluids. Take tylenol or ibuprofen for pain or fever. Take the medications as directed. Follow up with your regular doctor. GO TO THE ER FOR ANY WORSENING SYMPTOMS FOLLOW THE DIRECTIONS ON THE COVID-19 HAND OUT THAT WE GAVE YOU REGARDING SELF-ISOLATION UNTIL YOU KNOW YOUR COVID-19 RESULTS Prescriptions: Amoxicillin/Potassium Clav [Augmentin 875-125 Tablet] 1 tab PO Q12H 10 Days #20 tab Transmission Status: Received by [facility] methylPREDNISolone [Medrol] 4 mg PO DIRECTED 6 Days #21 tab.ds.pk Transmission Status: Received by [facility] Referrals: Vinnie Barnes MD [Primary Care Provider] - Forms: Work/School Release Time of Disposition: 20:53 Medical Decision Making - Medical Records Medical records reviewed: No: I reviewed the patient's medical records. - Jorge Inquiry Pt receiving controlled substance: No Vital Signs: 10/18/19 20:20 Pulse Rate [Radial] 117 H Respiratory Rate 19 Blood Pressure [Right Arm] 126/85 Blood Pressure Mean [Right Arm] 98 Blood Pressure Source [Right Arm] Automatic Cuff Blood Pressure Position [Right Arm] Sitting 02 Sat by Pulse Oximetry 98 Oxygen Delivery Method Room Air - Lab Data Lab results reviewed: Yes: I reviewed the patient's lab results. Lab Results 10/18/19 20:31: Strep Scn Rapid Clinic Negative Orders (Tests/Meds): ORDERS Category Date Time Status SARS-CoV-2, BRIDGET Stat Lab 10/18/19 20:45 Received Strep Screen Confirmation Stat Micro 10/18/19 20:31 Received [facility] HPI - General Stated complaint: Sinus pressure, runny nose,cough,low grade fever Time Seen by Provider: 10/18/19 20:25 Mode of Arrival: Ambulatory Source of Information: Patient Limitations: No Limitations Description of Symptoms (Recalled from Triage Doc. by RN): sinus pressure, drainage, achy HEENT Symptoms (Recalled from RN notes): Yes Resp Symptoms (Recalled from RN notes): No Skin Symptoms (Recalled from RN notes): No MS Symptoms (Recalled from RN notes): No Functional Status (Recalled from RN notes): wnl - History of Present Illness Provider Complaint: She c/o 3 days of worsening sinus congestion and pressure. She has also had a low grade fever and a scratchy sore throat. - Related Data Previous Rx's Medication Instructions Recorded hydroxyzine pamoate 25 mg capsule 25 mg PO TID PRN #30 cap 09/11/19 prednisone 20 mg tablet 20 mg PO BID 5 Days #10 tab 09/11/19 varenicline 0.5 mg (11)-1 mg (42) See Rx Instructions PO PER PKG DIR 09/11/19 tablets in a dose pack #53 tab Amoxicillin/Potassium Clav 1 tab PO Q12H 10 Days #20 tab 10/18/19 [Augmentin 875-125 Tablet] methylPREDNISolone [Medrol] 4 mg PO DIRECTED 6 Days #21 10/18/19 tab.ds.pk Allergies Allergy/AdvReac Type Severity Reaction Status Date / Time No Known Allergies Allergy Verified 09/12/19 09:39 - Worker's Comp Is this a Worker's Comp case?: No [facility] History - Hepatitis A Screen Drug use history?: No High risk sexual behaviors?: No History of sexually transmitted infection?: No Currently employed?: No Childcare worker?: No Do you have indoor plumbing?: Yes Do you have electricity?: Yes Attestation statement:: This patient has been screened for Hepatitis A risk factors. I have reviewed the patient's past medical history: Yes Medical History: Reports:: Anxiety, Depression, Gall Bladder Disease, Hypertension, Kidney Stones, Migraine Denies:: Cancer, Diabetes Mellitus Type 1, Diabetes Mellitus Type 2, MRSA Other Medical History: Reports: Fibromyalgia Comment: Bulging disc in back, pinched nerve in neck O
[2019-10-18 21:04] VITALS: BP 126/85; PULSE 117; RESP 19; TEMP 36.7; O2SAT 98
[2019-10-20 16:03] LABS: Covid-19 Nasal PCR Sendout Lex Not Detected
== END 2019-10-18 21:06 | disposition home or self-care (01) ==
PROVIDERS: Emergency Provider Nurse Practitioner Family; PCP Emergency Medicine
DX: J01.90 Acute sinusitis, unspecified (principal); I10 Essential (primary) hypertension; F41.8 Other specified anxiety disorders; Z87.442 Personal history of urinary calculi; G43.709 Chronic migraine without aura, not intractable, without status migrainosus; M79.7 Fibromyalgia; F17.210 Nicotine dependence, cigarettes, uncomplicated
CPT/HCPCS: 87880; 99201; 99202; U0004

== ENCOUNTER 2020-04-21 09:09 | Emergency (ER) | payer OTHER, SELFPAY ==
[2020-04-21 09:20] VITALS: BP 127/93; PULSE 101; RESP 14; TEMP 36.7; O2SAT 99; BMI 36.9
--- NOTE | 2020-04-21 09:25 | XR_ITS ---
PROCEDURE: XR FACIAL BONES MIN 3V CLINICAL INDICATION: injury Pain following injury COMPARISON: No exams were available for comparison FINDINGS: No obvious fracture or dislocation. No sinus air-fluid level. Other findings:None. IMPRESSION: No acute findings. Dictated by: Robbie Kaur MD 04/21/2020 11:06 Robbie Kaur MD in [place] 04/21/2020 11:06
--- NOTE | 2020-04-21 09:25 | XR_ITS ---
PROCEDURE: XR CERVICAL SPINE 4V CLINICAL INDICATION: injury Pain COMPARISON: No exams were available for comparison FINDINGS: No fracture or dislocation. No lytic or blastic change. There is normal mineralization. The joint spaces are well-preserved. No significant degenerative/arthritic changes. No erosive changes evident. Other findings:None. IMPRESSION: Negative cervical spine Dictated by: Robbie Kaur MD 04/21/2020 11:07 Robbie Kaur MD in [place] 04/21/2020 11:07
--- NOTE | 2020-04-21 09:46 | HMH.EDUTC ---
[facility] [place] Disposition Clinical Impression: Neck pain Contusion, eye, right Qualifiers: Encounter type: initial encounter Qualified Code(s): S05.11XA - Contusion of eyeball and orbital tissues, right eye, initial encounter Otitis media Qualifiers: Otitis media type: suppurative Chronicity: acute Laterality: bilateral Recurrence: non-recurrent Spontaneous tympanic membrane rupture: without spontaneous rupture Qualified Code(s): H66.003 - Acute suppurative otitis media without spontaneous rupture of ear drum, bilateral Disposition: Home, Self-Care Condition on Discharge: Good Instructions: DI for Eye Contusion, Eye Contusion, DI for Neck Pain Additional Instructions: Rest Take ibuprofen for pain. I sent in a prescription to your pharmacy. Follow up with your primary care physician if your symptoms continue. GO TO THE ER FOR ANY WORSENING SYMPTOMS Prescriptions: Ibuprofen [Ibuprofen 600mg Tablet] 600 mg PO Q6HP PRN #30 tab PRN Reason: Mild Pain Transmission Status: Received by [facility] Methocarbamol [Robaxin 500mg Tab] 500 mg PO BIDP PRN #30 tab PRN Reason: Muscle Spasm Transmission Status: Received by [facility] Azithromycin [Z-Xavi 250mg Tab*] 250 mg PO UD DOSE PK #6 tab Transmission Status: Received by [facility] Referrals: Vinnie Barnes MD [Primary Care Provider] - Forms: Work/School Release Time of Disposition: 11:21 Medical Decision Making - Medical Records Medical records reviewed: No: I reviewed the patient's medical records. - Jorge Inquiry Pt receiving controlled substance: No Vital Signs: 04/21/20 09:20 04/21/20 11:22 Temperature 98.0 F 98.0 F Temperature Source Temporal Artery Scan Pulse Rate 101 H Pulse Rate [Right Brachial] 101 H Respiratory Rate 14 14 Blood Pressure 127/93 H Blood Pressure [Right Arm] 127/93 H Blood Pressure Mean [Right Arm] 104 Blood Pressure Source [Right Arm] Automatic Cuff Blood Pressure Position [Right Arm] Sitting 02 Sat by Pulse Oximetry 99 Oxygen Delivery Method Room Air [facility] [place] HPI - General Stated complaint: [id number] home accident,neck pain Time Seen by Provider: 04/21/20 09:46 - History of Present Illness Provider Complaint: She states that 5 days ago her daughter (2 years old) bumped the back of her head into this patient's face. Since then she has had tenderness and bruising below her right eye and neck pain. - Related Data Previous Rx's Medication Instructions Recorded Azithromycin [Z-Xavi 250mg Tab*] 250 mg PO UD DOSE PK #6 tab 04/21/20 Ibuprofen [Ibuprofen 600mg 600 mg PO Q6HP PRN #30 tab 04/21/20 Tablet] Methocarbamol [Robaxin 500mg Tab] 500 mg PO BIDP PRN #30 tab 04/21/20 Allergies Allergy/AdvReac Type Severity Reaction Status Date / Time No Known Allergies Allergy Verified 09/12/19 09:39 [facility] History - Hepatitis A Screen Attestation statement:: This patient has been screened for Hepatitis A risk factors. I have reviewed the patient's past medical history: Yes Medical History: Reports:: Anxiety, Depression, Gall Bladder Disease, Hypertension, Kidney Stones, Migraine Denies:: Cancer, Diabetes Mellitus Type 1, Diabetes Mellitus Type 2, MRSA Other Medical History: Reports: Fibromyalgia Comment: Bulging disc in back, pinched nerve in neck Other Surgeries: Yes: Cholecystectomy, Diagnostic Lap, Hysterectomy-Partial, Tubal Ligation, Other Amputation: No Fractures: No Comment: carpal tunnel lt had, ablasion pcos,kidney stone, neck tumor - Social History Smoking Status: Current every day smoker Tobacco Type: cigarettes # Packs/Day (cigarettes): 1 #Yrs smoked (if former smoker): 20 Alcohol Intake: never Alcohol Intake Frequency:: holidays/special occasions only Substance Use Type: denies use Occupational Status: employed Housing: apartment Household Members: children - Psychiatric History Pschychiatric History:: Reports:: Anxiety, Depression Family Hx:: H
[2020-04-21 11:22] VITALS: BP 127/93; PULSE 101; RESP 14; TEMP 36.7; O2SAT 99
== END 2020-04-21 11:30 | disposition home or self-care (01) ==
PROVIDERS: Emergency Provider Nurse Practitioner Family; PCP Emergency Medicine
DX: S05.11XA Contusion of eyeball and orbital tissues, right eye, initial encounter (principal); W50.0XXA Accidental hit or strike by another person, initial encounter; Y92.019 Unspecified place in single-family (private) house as the place of occurrence of the external cause; F41.8 Other specified anxiety disorders; I10 Essential (primary) hypertension; M79.7 Fibromyalgia; G43.709 Chronic migraine without aura, not intractable, without status migrainosus; Z87.442 Personal history of urinary calculi; F17.210 Nicotine dependence, cigarettes, uncomplicated
CPT/HCPCS: 70150; 72050; 99202; G0463

== ENCOUNTER 2020-07-16 16:48 | Emergency (ER) | payer OTHER, SELFPAY ==
[2020-07-16 17:40] VITALS: BP 108/63; PULSE 78; RESP 20; TEMP 37; O2SAT 98; BMI 35.9
--- NOTE | 2020-07-16 18:09 | HMH.EDUTC ---
[facility] [place] Disposition Clinical Impression: Sinusitis Qualifiers: Sinusitis location: unspecified location Chronicity: unspecified Qualified Code(s): J32.9 - Chronic sinusitis, unspecified Disposition: Home, Self-Care Condition on Discharge: Good Instructions: Sinusitis, Sinus Headache, DI for Sinusitis, Methylprednisolone, Amoxicillin and Clavulanic Acid Additional Instructions: Monitor Temp, Over the counter Motrin or Tylenol as directed/as needed Tylenol every 4 hours and Motrin every 6 hours (as long as your family doctor has told you that you can take it) for fever or pain. and straight to ER if unable to lower temp less than 101.0 after medication given *Warm salt water gargles may help to soothe the throat *Throat Lozenges *Warm fluids like tea with honey may help to soothe the throat *Sleep elevated *Humidifier/Vaporizer Take medication as prescribed Return if needed Straight to ER if any life threatening symptoms Follow up IMMEDIATELY for new or worsening symptoms or no Noticeable improvement over the next 48-72 hours. 911 for difficulty breathing or swallowing Prescriptions: Amoxicillin/Potassium Clav [Augmentin 875-125 Tablet] 1 tab PO Q12H 7 Days #14 tab Transmission Status: Pending to [facility] methylPREDNISolone [Medrol 4mg tab] 4 mg PO DIRECTED #21 tab Transmission Status: Pending to [facility] Referrals: Vinnie Barnes MD [Primary Care Provider] - As needed Time of Disposition: 18:16 Medical Decision Making - Jorge Inquiry Pt receiving controlled substance: No Jorge was queried for this patient: No Vital Signs: 07/16/20 17:40 Temperature 98.6 F Temperature Source Oral Pulse Rate [Left Brachial] 78 Respiratory Rate 20 Blood Pressure [Left Arm] 108/63 L Blood Pressure Mean [Left Arm] 78 Blood Pressure Source [Left Arm] Automatic Cuff Blood Pressure Position [Left Arm] Sitting 02 Sat by Pulse Oximetry 98 Oxygen Delivery Method Room Air [facility] HPI - General Stated complaint: ear pain, cough, runny nose Time Seen by Provider: 07/16/20 18:09 Mode of Arrival: Ambulatory Source of Information: Patient Limitations: No Limitations Description of Symptoms (Recalled from Triage Doc. by RN): PATIENT C/O RUNNY NOSE, COUGH, LOW-GRADE FEVER, AND POPPING IN EARS X 2 WEEKS HEENT Symptoms (Recalled from RN notes): Yes Resp Symptoms (Recalled from RN notes): No Skin Symptoms (Recalled from RN notes): No MS Symptoms (Recalled from RN notes): No Functional Status (Recalled from RN notes): WNL - History of Present Illness Provider Complaint: Patient states that she has been having sinus problems for about 2 weeks and has been trying to take care of it with over the counter Medication but it hasnt helped and now it feels like it is trying to move into her ears States that her ears feel full she has pressure behind her eyes and her ears are popping like there is fluid in there - Related Data Previous Rx's Medication Instructions Recorded Amoxicillin/Potassium Clav 1 tab PO Q12H 7 Days #14 tab 07/16/20 [Augmentin 875-125 Tablet] methylPREDNISolone [Medrol 4mg 4 mg PO DIRECTED #21 tab 07/16/20 tab] Allergies Allergy/AdvReac Type Severity Reaction Status Date / Time No Known Allergies Allergy Verified 09/12/19 09:39 - Worker's Comp Is this a Worker's Comp case?: No [facility] History - Hepatitis A Screen Drug use history?: No High risk sexual behaviors?: No History of sexually transmitted infection?: No Currently employed?: No Childcare worker?: No Do you have indoor plumbing?: Yes Do you have electricity?: Yes Attestation statement:: This patient has been screened for Hepatitis A risk factors. I have reviewed the patient's past medical history: Yes Medical History: Reports:: Anxiety, Depression, Gall Bladder Disease, Hypertension, Kidney Stones, Migraine Denies:: Cancer, Diabetes Mellitus Type 1, Diabetes Mellitus Type 2, MRSA Other Medical Hist
[2020-07-16 18:18] VITALS: BP 108/63; PULSE 78; RESP 20; TEMP 37; O2SAT 98
== END 2020-07-16 18:20 | disposition home or self-care (01) ==
PROVIDERS: Emergency Provider Nurse Practitioner; PCP Emergency Medicine
DX: J32.9 Chronic sinusitis, unspecified (principal); F41.8 Other specified anxiety disorders; I10 Essential (primary) hypertension; F17.210 Nicotine dependence, cigarettes, uncomplicated; Z87.442 Personal history of urinary calculi
CPT/HCPCS: 99202; G0463

== ENCOUNTER 2021-06-02 13:45 | Emergency (ER) | payer OTHER, SELFPAY ==
[2021-06-02 14:55] LABS: UTC Influenza A Antigen Negative (Negative); UTC Influenza B Antigen Negative (Negative)
[2021-06-02 15:00] LABS: Strep Scrn Group A (Rapid) Negative (Negative)
[2021-06-02 15:19] VITALS: BP 114/71; PULSE 108; RESP 19; TEMP 37.1; O2SAT 98; BMI 32.5
--- NOTE | 2021-06-02 15:42 | HMH.EDUTC ---
[facility] [place] Impression: Viral syndrome Disposition: Home, Self-Care Condition on Discharge: Good Instructions: Influenza, DI for Influenza -- Adult Additional Instructions: Drink plenty of fluids. Take tylenol or ibuprofen for pain or fever. Take the medications as directed. Follow up with your regular doctor. GO TO THE ER FOR ANY WORSENING SYMPTOMS Prescriptions: Promethazine HCl [Phenergan 25mg tab] 25 mg PO Q6H PRN #20 tab PRN Reason: Nausea And Vomiting Transmission Status: Received by [facility] Oseltamivir Phosphate [Tamiflu 75mg Capsule] 75 mg PO BID #10 cap Transmission Status: Received by [facility] Referrals: Vinnie Barnes MD [Primary Care Provider] - Forms: Work/School Release Time of Disposition: 15:59 Medical Decision Making - Medical Records Medical records reviewed: No: I reviewed the patient's medical records. - Jorge Inquiry Pt receiving controlled substance: No Vital Signs: 06/02/21 15:19 06/02/21 16:04 Temperature 98.8 F 98.8 F Temperature Source Oral Pulse Rate 108 H Pulse Rate [Left] 108 H Respiratory Rate 19 19 Blood Pressure 114/71 Blood Pressure [Right Arm] 114/71 Blood Pressure Mean [Right Arm] 85 02 Sat by Pulse Oximetry 98 - Lab Data Lab results reviewed: Yes: I reviewed the patient's lab results. Lab Results 06/02/21 14:41: Influenza Type A Ag Negative, Influenza Type B Ag Negative 06/02/21 14:42: Group A Strep Rapid Negative Orders (Tests/Meds): ORDERS Category Date Time Status Strep Screen Confirmation Stat Micro 06/02/21 14:42 Re[place] [facility] [place] - General Stated complaint: fever, diarrhea, congestion, body aches Time Seen by Provider: 06/02/21 15:42 Mode of Arrival: Ambulatory Source of Information: Patient Limitations: No Limitations Description of Symptoms (Recalled from Triage Doc. by RN): pt c/o a fever, sore throat, diarrhea and body aches. pts son is positive for the flu. symptoms started yesterday. HEENT Symptoms (Recalled from RN notes): Yes Resp Symptoms (Recalled from RN notes): No Skin Symptoms (Recalled from RN notes): No MS Symptoms (Recalled from RN notes): No Functional Status (Recalled from RN notes): wnl - History of Present Illness Provider Complaint: Her son currently has influenza a. She states that this morning she has had chilling, fever, body aches. - Related Data Previous Rx's Medication Instructions Recorded Amoxicillin/Potassium Clav 1 tab PO Q12H 7 Days #14 tab 07/16/20 [Augmentin 875-125 Tablet] methylPREDNISolone [Medrol 4mg 4 mg PO DIRECTED #21 tab 07/16/20 tab] Oseltamivir Phosphate [Tamiflu 75 mg PO BID #10 cap 06/02/21 75mg Capsule] Promethazine HCl [Phenergan 25mg 25 mg PO Q6H PRN #20 tab 06/02/21 tab] Allergies Allergy/AdvReac Type Severity Reaction Status Date / Time No Known Allergies Allergy Verified 09/12/19 09:39 - Worker's Comp Is this a Worker's Comp case?: No [facility] History - Hepatitis A Screen Drug use history?: No High risk sexual behaviors?: No History of sexually transmitted infection?: No Currently employed?: No Childcare worker?: No Do you have indoor plumbing?: Yes Do you have electricity?: Yes Attestation statement:: This patient has been screened for Hepatitis A risk factors. I have reviewed the patient's past medical history: Yes Medical History: Reports:: Anxiety, Depression, Gall Bladder Disease, Hypertension, Kidney Stones, Migraine Denies:: Cancer, Diabetes Mellitus Type 1, Diabetes Mellitus Type 2, MRSA Other Medical History: Reports: Fibromyalgia Comment: Bulging disc in back, pinched nerve in neck Other Surgeries: Yes: Cholecystectomy, Diagnostic Lap, Hysterectomy-Partial, Tubal Ligation, Other Amputation: No Fractures: No Comment: carpal tunnel lt had, ablasion pcos,kidney stone, neck tumor - Social History Smoking Status: Current every day smoker Tobacco
[2021-06-02 16:04] VITALS: BP 114/71; PULSE 108; RESP 19; TEMP 37.1
== END 2021-06-02 16:05 | disposition home or self-care (01) ==
PROVIDERS: Emergency Provider Nurse Practitioner Family; PCP Emergency Medicine
DX: B34.9 Viral infection, unspecified (principal); F41.8 Other specified anxiety disorders; I10 Essential (primary) hypertension; M79.7 Fibromyalgia
CPT/HCPCS: 87430; 87804; 99212; G0463

== ENCOUNTER 2021-06-07 09:01 | Emergency (ER) | payer OTHER, SELFPAY ==
[2021-06-07 09:20] VITALS: BP 121/61; PULSE 102; RESP 16; TEMP 37; O2SAT 98; BMI 34.4
--- NOTE | 2021-06-07 09:52 | HMH.EDUTC ---
[facility] [place] Clinical Impression: Acute bronchitis Qualifiers: Bronchitis organism: unspecified organism Qualified Code(s): J20.9 - Acute bronchitis, unspecified Sinusitis Qualifiers: Sinusitis location: unspecified location Chronicity: acute Recurrence: non-recurrent Qualified Code(s): J01.90 - Acute sinusitis, unspecified Disposition: Home, Self-Care Condition on Discharge: Good Instructions: DI for Sinusitis, DI for Acute Bronchitis Additional Instructions: Drink plenty of fluids. Take tylenol or ibuprofen for pain or fever. Take the medications as directed. Follow up with your regular doctor. GO TO THE ER FOR ANY WORSENING SYMPTOMS Don't start the oral steroids until tomorrow, since you had the shot here today. The cough medication (promethazine dm) will make you drowsy, so don't drive or operate heavy machinery after taking it. Prescriptions: Benzonatate [Benzonatate 100mg cap] 100 mg PO TIDP PRN #30 cap PRN Reason: Cough Transmission Status: Received by [facility] methylPREDNISolone [Medrol] 4 mg PO DIRECTED 6 Days #21 packet Transmission Status: Received by [facility] Azithromycin [Z-Xavi 250mg Tab*] 250 mg PO UD DOSE PK #6 tab Transmission Status: Received by [facility] Referrals: Vinnie Barnes MD [Primary Care Provider] - Forms: Work/School Release Time of Disposition: 10:32 Medical Decision Making - Medical Records Medical records reviewed: No: I reviewed the patient's medical records. - Jorge Inquiry Pt receiving controlled substance: No Vital Signs: 06/07/21 09:20 06/07/21 10:16 Temperature 98.6 F 98.6 F Temperature Source Oral Pulse Rate 102 H Pulse Rate [Left] 102 H Respiratory Rate 16 16 Blood Pressure 121/61 Blood Pressure [Right Arm] 121/61 Blood Pressure Mean [Right Arm] 81 02 Sat by Pulse Oximetry 98 Orders (Tests/Meds): ED MEDICATIONS Discontinued Medications Generic Name Dose Route Start Last Admin Trade Name Freq PRN Reason Stop Dose Admin Ceftriaxone Sodium 1 gm 06/07/21 09:58 06/07/21 10:12 Ceftriaxone 1gm Vial IM 06/07/21 09:59 1 gm ONCE ONE Administration Lidocaine HCl 0 ml 06/07/21 09:58 06/07/21 10:12 Lidocaine 1% 5ml Pf Vial IM 06/07/21 09:59 5 ml ONCE ONE Administration Methylprednisolone Sodium Succinate 125 mg 06/07/21 09:58 06/07/21 10:12 Methylprednisolone Sod Succ 125mg Vial IM 06/07/21 09:59 125 mg ONCE ONE Administration [facility] [place] - General Stated complaint: congestion, cough, fever Time Seen by Provider: 06/07/21 09:53 Mode of Arrival: Ambulatory Source of Information: Patient Limitations: No Limitations Description of Symptoms (Recalled from Triage Doc. by RN): pt tested positive for the flu on 05/31. pt c/o a cough, nasal drainage, and fever. HEENT Symptoms (Recalled from RN notes): Yes Resp Symptoms (Recalled from RN notes): Yes Skin Symptoms (Recalled from RN notes): No MS Symptoms (Recalled from RN notes): No Functional Status (Recalled from RN notes): wnl - History of Present Illness Provider Complaint: She had influenza last week. She states that since then she has continued to have a cough and chest congestion. - Related Data Previous Rx's Medication Instructions Recorded Amoxicillin/Potassium Clav 1 tab PO Q12H 7 Days #14 tab 07/16/20 [Augmentin 875-125 Tablet] methylPREDNISolone [Medrol 4mg 4 mg PO DIRECTED #21 tab 07/16/20 tab] Oseltamivir Phosphate [Tamiflu 75 mg PO BID #10 cap 06/02/21 75mg Capsule] Promethazine HCl [Phenergan 25mg 25 mg PO Q6H PRN #20 tab 06/02/21 tab] Azithromycin [Z-Xavi 250mg Tab*] 250 mg PO UD DOSE PK #6 tab 06/07/21 Benzonatate [Benzonatate 100mg 100 mg PO TIDP PRN #30 cap 06/07/21 cap] methylPREDNISolone [Medrol] 4 mg PO DIRECTED 6 Days #21 06/07/21 packet Allergies Allergy/AdvReac Type Severity Reaction Status Date / Time No Known Allergies Allerg
[2021-06-07 10:16] VITALS: BP 121/61; PULSE 102; RESP 16; TEMP 37
== END 2021-06-07 10:50 | disposition home or self-care (01) ==
PROVIDERS: Emergency Provider Nurse Practitioner Family; PCP Emergency Medicine
DX: J02.9 Acute pharyngitis, unspecified (principal); J01.90 Acute sinusitis, unspecified; I10 Essential (primary) hypertension; N20.0 Calculus of kidney; K82.9 Disease of gallbladder, unspecified; F32.A Depression, unspecified; F41.9 Anxiety disorder, unspecified; F17.210 Nicotine dependence, cigarettes, uncomplicated; Z79.52 Long term (current) use of systemic steroids; Z79.899 Other long term (current) drug therapy; Z82.49 Family history of ischemic heart disease and other diseases of the circulatory system; Z83.49 Family history of other endocrine, nutritional and metabolic diseases
CPT/HCPCS: 96372; 99213; G0463; J0696

== ENCOUNTER 2022-01-04 17:55 | Emergency (ER) | payer OTHER, SELFPAY ==
[2022-01-04 20:38] VITALS: BP 136/89; PULSE 76; RESP 18; TEMP 36.9; O2SAT 98; BMI 31.7
[2022-01-04 20:45] LABS: Apearance,Urine Clear (Clear); Color,Urine Dark Yellow (Yellow); Glucose,Urine (UA) Negative (Negative); PH,Urine 6.5 (5.0-8.5); Protein,Urine Negative (Negative); Specific Gravity, Urine 1.025 (1.005-1.030)
[2022-01-04 20:46] LABS: Bilirubin,Urine Negative (Negative); Blood, Urine 3+ (Negative); Ketones,Urine Negative (Negative); UTC Leukocyte Esterase,Urine Negative (Negative); UTC Nitrate,Urine Negative (Negative); Urobilinogen,Urine 0.2 EU/dl (0.2)
--- NOTE | 2022-01-04 20:51 | EXP.UTC ---
Discharge Plan Disposition Patient Disposition: Home, Self-Care Condition: Good Prescriptions Prescriptions: New cefdinir 300 mg capsule 300 mg PO BID Qty: 20 0RF phenazopyridine [Pyridium] 200 mg tablet 200 mg PO Q8H 2 Days Qty: 6 0RF No Action methylprednisolone 4 MG tablet 4 mg PO DIRECTED Qty: 21 0RF Rx Instructions: Take as directed on package instructions amoxicillin-pot clavulanate 1 EACH tablet 1 tab PO Q12H 7 Days Qty: 14 0RF promethazine 25 MG tablet 25 mg PO Q6H PRN (Reason: Nausea And Vomiting) Qty: 20 0RF oseltamivir 75 MG capsule 75 mg PO BID Qty: 10 0RF azithromycin 250 MG tablet 250 mg PO UD DOSE PK Qty: 6 0RF Rx Instructions: Take two (2) tablets today, then one (1) tablet days #2 thru #5 benzonatate 100 MG capsule 100 mg PO TIDP PRN (Reason: Cough) Qty: 30 0RF methylprednisolone 4 MG tablets,dose pack 4 mg PO DIRECTED 6 Days Qty: 21 0RF Referrals Follow up/Referrals: Vinnie Barnes MD [Primary Care Provider] - See instructions Activity Restrictions/Add. Instructions Additional Instructions/Restrictions: *Increase fluids. Water not Soda or Tea *Start antibiotic immediately and be sure to take as ordered for the FULL length of time although you should start to see improvement over the next 48 hours *Pyridium as needed Remember this medication will turn your urine . This is normal but it will stain what ever it gets on *You should not use Pyridium for more than 48 hours. If so , follow up with your primary physician to review urine culture and ensure that antibiotic is adequate for infection *Be SURE to follow up anytime for new or worsening symptoms with your family doctor. AND in 48 hours for urine culture results with your family doctor, if you do not have a doctor then you may call back to the [facility] for urine culture results and further treatment. We do recommend that you choose and establish care with a Primary Care Physician. ?AND follow up with them ?in 10-14 days to repeat UA to ensure infection is resolved and blood no longer present *Be sure to let your PCP know that we sent urine cultures from the [facility] so they can follow up to ensure that you area the on the correct antibiotic Call your doctor office and make appointment for 48 hours (2 days from today) ?to follow up and get the results of your urine culture and further treatment Make sure to follow up and straight to ER if any life threatening symptoms or fever or abdominal pain Clinical Impressions Clinical Impression: UTI (urinary tract infection) Qualifiers: Urinary tract infection type: site unspecified Hematuria presence: with hematuria Qualified Code(s): N39.0 - Urinary tract infection, site not specified Instructions Patient Instructions: Blood in Urine, DI for Urinary Tract Infection (UTI) Discharge ED Provider: Cristel Dawn [facility] [place] H[place] General Stated complaint: possible uti Mode of Arrival: Ambulatory Source of Information: Patient Limitations: No Limitations Time Seen by Provider: 01/04/22 20:51 Description of Symptoms (Recalled from Triage Doc. by RN): PT TO [facility] WITH PAINFUL URINATING AND INCREASED FREQUENCY X 3 DAYS HEENT Symptoms (Recalled from RN notes): No Resp Symptoms (Recalled from RN notes): No Skin Symptoms (Recalled from RN notes): No MS Symptoms (Recalled from RN notes): No Functional Status (Recalled from RN notes): WDL History of Present Illness Provider Complaint: Patient states that she recently had sex and sometimes gets UTI after States that for the last couple of days she has been having burning with urination and feeling of urgency and frequency States that feels like it did when she has a UTI States that she also has been having some nasal congestion Related Data Previous Rx's Medication Instructions Recorded amoxicillin 875 mg-potassium 1 tab PO Q12H 7 days #14 tabs 07/16/20 clavulanate 125 mg tablet methylprednisolone 4 mg tablet 4 mg PO
[2022-01-04 21:16] VITALS: BP 131/79; PULSE 81; RESP 17; TEMP 36.7; O2SAT 97
== END 2022-01-04 21:17 | disposition home or self-care (01) ==
PROVIDERS: Emergency Provider Nurse Practitioner; PCP Emergency Medicine
DX: N39.0 Urinary tract infection, site not specified (principal)
CPT/HCPCS: 81003; 96372; 99212; G0463; J0696

== ENCOUNTER 2022-01-08 09:05 | Emergency (ER) | payer OTHER, SELFPAY ==
[2022-01-08 10:00] VITALS: BP 117/86; PULSE 86; RESP 19; TEMP 37.3; O2SAT 100; BMI 33.5
[2022-01-08 10:18] LABS: UTC Influenza A Antigen Negative (Negative); UTC Influenza B Antigen Negative (Negative)
--- NOTE | 2022-01-08 10:20 | EXP.UTC ---
Discharge Plan Disposition Patient Disposition: Home, Self-Care Condition: Good Prescriptions Prescriptions: New guaifenesin [Mucinex] 600 mg tablet extended release 12hr 600 mg PO BID PRN (Reason: cough) Qty: 20 0RF No Action methylprednisolone 4 MG tablet 4 mg PO DIRECTED Qty: 21 0RF Rx Instructions: Take as directed on package instructions amoxicillin-pot clavulanate 1 EACH tablet 1 tab PO Q12H 7 Days Qty: 14 0RF promethazine 25 MG tablet 25 mg PO Q6H PRN (Reason: Nausea And Vomiting) Qty: 20 0RF oseltamivir 75 MG capsule 75 mg PO BID Qty: 10 0RF azithromycin 250 MG tablet 250 mg PO UD DOSE PK Qty: 6 0RF Rx Instructions: Take two (2) tablets today, then one (1) tablet days #2 thru #5 benzonatate 100 MG capsule 100 mg PO TIDP PRN (Reason: Cough) Qty: 30 0RF methylprednisolone 4 MG tablets,dose pack 4 mg PO DIRECTED 6 Days Qty: 21 0RF cefdinir 300 mg capsule 300 mg PO BID Qty: 20 0RF phenazopyridine [Pyridium] 200 mg tablet 200 mg PO Q8H 2 Days Qty: 6 0RF Referrals Follow up/Referrals: Vinnie Barnes MD [Primary Care Provider] - See instructions Activity Restrictions/Add. Instructions Additional Instructions/Restrictions: *Monitor Temp, Over the counter Motrin or Tylenol as directed/as needed Tylenol every 4 hours and Motrin every 6 hours (as long as your family doctor has told you that you can take it) for fever or pain. and straight to ER if unable to lower temp less than 101.0 after medication given *Warm salt water gargles may help to soothe the throat *Throat Lozenges? *Warm fluids like tea with honey may help to soothe the throat? *Sleep elevated *Humidifier/Vaporizer Your throat swab was sent for culture. Those results are typically sent to your primary care. Be sure to follow up in 2-3 days with your family doctor/primary care physician if no improvement so they can review those result and treat if necessary. If you don?t have a primary care doctor, I recommend you get one but in the mean time, you will have to return to a walk in clinic Follow up IMMEDIATELY for new or worsening symptoms or no Noticeable improvement over the next 48-72 hours. 911 for difficulty breathing or swallowing You were tested for today for COVID19 your test result should be back in the next 24-48 hours, you may check your results on the [facility] [employer] [facility] Clinical Impressions Clinical Impression: URI (upper respiratory infection) Instructions Patient Instructions: Sore Throat, Cough Discharge ED Provider: Cristel Dawn [facility] [place] HPI General Stated complaint: congestion, fever Mode of Arrival: Ambulatory Source of Information: Patient Limitations: No Limitations Time Seen by Provider: 01/08/22 10:20 Description of Symptoms (Recalled from Triage Doc. by RN): PATIENT C/O CONGESTION, FEVER, AND SORE THROAT. HEENT Symptoms (Recalled from RN notes): Yes Resp Symptoms (Recalled from RN notes): No Skin Symptoms (Recalled from RN notes): No MS Symptoms (Recalled from RN notes): No Functional Status (Recalled from RN notes): WNL History of Present Illness Provider Complaint: Patient states that she is currently on antibioitics for UTI States that she thinks she may have a viral infection or flu States that she has been having sore throat, low grade fever and cough States that she is coughing up some mucous at times but was worried that she may the flu or something Related Data Previous Rx's Medication Instructions Recorded amoxicillin 875 mg-potassium 1 tab PO Q12H 7 days #14 tabs 07/16/20 clavulanate 125 mg tablet methylprednisolone 4 mg tablet 4 mg PO DIRECTED #21 tabs 07/16/20 oseltamivir 75 mg capsule 75 mg PO BID #10 caps 06/02/21 promethazine 25 mg tablet 25 mg PO Q6H PRN Nausea And 06/02/21 Vomiting #20 tabs azithromycin 250 mg tablet 250 mg PO UD DOSE PK #6 tabs 06/07/21 benzonatate 100 mg capsule 100 mg PO TIDP
[2022-01-08 10:33] VITALS: BP 117/86; PULSE 86; RESP 19; TEMP 37.3; O2SAT 100
[2022-01-08 11:10] LABS: Adenovirus,PCR Not Detected (NotDetected); Bordetella Pertussis Not Detected (NotDetected); Chlamydophila Pneumoniae, PCR Not Detected (NotDetected); Coronavirus 19, PCR Not Detected (NotDetected); Coronavirus 229E Not Detected (NotDetected); Coronavirus NL63 Not Detected (NotDetected); Coronavirus OC43 Not Detected (NotDetected); Coronovirus HKU1,PCR Not Detected (NotDetected); Human Metapneumovirus Not Detected (NotDetected); Influenza A, PCR Not Detected (NotDetected); Influenza AH1, 2009 Not Detected (NotDetected); Influenza AH1, PCR Not Detected (NotDetected); Influenza AH3,PCR Not Detected (NotDetected); Influenza B, PCR Not Detected (NotDetected); Mycoplasma Pneumoniae, PCR Not Detected (NotDetected); Parainfluenza 1, PCR Not Detected (NotDetected); Parainfluenza 2, PCR Not Detected (NotDetected); Parainfluenza 3, PCR Not Detected (NotDetected); Parainfluenza 4, PCR Not Detected (NotDetected); Respiratory Syncytial Virus Not Detected (NotDetected)
[2022-01-09 08:17] LABS: Rhinovirus/Enterovirus Detected (NotDetected)
== END 2022-01-08 10:52 | disposition home or self-care (01) ==
PROVIDERS: Emergency Provider Nurse Practitioner; PCP Emergency Medicine
DX: J06.9 Acute upper respiratory infection, unspecified (principal)
CPT/HCPCS: 87581; 87632; 87798; 87804; 99212; C9803; G0463; U0003; U0005

== ENCOUNTER 2022-01-30 09:22 | Emergency (ER) | payer OTHER, SELFPAY ==
--- NOTE | 2022-01-30 10:35 | EXP.UTC ---
Discharge Plan Disposition Patient Disposition: Home, Self-Care Condition: Good Prescriptions Prescriptions: New methylprednisolone 4 mg Tablets,Dose Pack 4 mg PO DIRECTED Qty: 21 0RF amoxicillin-pot clavulanate 500-125 mg tablet 1 tab PO BID Qty: 20 0RF No Action methylprednisolone 4 MG tablet 4 mg PO DIRECTED Qty: 21 0RF Rx Instructions: Take as directed on package instructions amoxicillin-pot clavulanate 1 EACH tablet 1 tab PO Q12H 7 Days Qty: 14 0RF promethazine 25 MG tablet 25 mg PO Q6H PRN (Reason: Nausea And Vomiting) Qty: 20 0RF oseltamivir 75 MG capsule 75 mg PO BID Qty: 10 0RF azithromycin 250 MG tablet 250 mg PO UD DOSE PK Qty: 6 0RF Rx Instructions: Take two (2) tablets today, then one (1) tablet days #2 thru #5 benzonatate 100 MG capsule 100 mg PO TIDP PRN (Reason: Cough) Qty: 30 0RF methylprednisolone 4 MG tablets,dose pack 4 mg PO DIRECTED 6 Days Qty: 21 0RF guaifenesin [Mucinex] 600 mg tablet extended release 12hr 600 mg PO BID PRN (Reason: cough) Qty: 20 0RF benzonatate 100 mg capsule 100 mg PO TID PRN (Reason: cough) Qty: 30 0RF cefdinir 300 mg capsule 300 mg PO BID Qty: 20 0RF phenazopyridine [Pyridium] 200 mg tablet 200 mg PO Q8H 2 Days Qty: 6 0RF Referrals Follow up/Referrals: Vinnie Barnes MD [Primary Care Provider] - See instructions Activity Restrictions/Add. Instructions Additional Instructions/Restrictions: Drink plenty of fluids. Take tylenol or ibuprofen for pain or fever. Take the medications as directed. Follow up with your regular doctor. GO TO THE ER FOR ANY WORSENING SYMPTOMS Clinical Impressions Clinical Impression: Strep throat Instructions Patient Instructions: Strep Throat, DI for Strep Throat Discharge ED Provider: Jimbo Koch [facility] [place] HPI General Stated complaint: Sore throat,fever Time Seen by Provider: 01/30/22 10:35 History of Present Illness Provider Complaint: She states that for the past 2 days she has had sore throat, chills, body aches and low grade fever. Related Data Previous Rx's Medication Instructions Recorded amoxicillin 875 mg-potassium 1 tab PO Q12H 7 days #14 tabs 07/16/20 clavulanate 125 mg tablet methylprednisolone 4 mg tablet 4 mg PO DIRECTED #21 tabs 07/16/20 oseltamivir 75 mg capsule 75 mg PO BID #10 caps 06/02/21 promethazine 25 mg tablet 25 mg PO Q6H PRN Nausea And 06/02/21 Vomiting #20 tabs azithromycin 250 mg tablet 250 mg PO UD DOSE PK #6 tabs 06/07/21 benzonatate 100 mg capsule 100 mg PO TIDP PRN Cough #30 caps 06/07/21 methylprednisolone 4 mg tablets in 4 mg PO DIRECTED 6 days #21 06/07/21 a dose pack packets cefdinir 300 mg capsule 300 mg PO BID #20 caps 01/04/22 phenazopyridine 200 mg tablet 200 mg PO Q8H pain 2 days #6 tabs 01/04/22 (Pyridium) benzonatate 100 mg capsule 100 mg PO TID PRN cough #30 caps 01/08/22 guaifenesin 600 mg tablet, 600 mg PO BID PRN cough #20 tabs 01/08/22 extended release 12 hr (Mucinex) amoxicillin 500 mg-potassium 1 tab PO BID #20 tabs 01/30/22 clavulanate 125 mg tablet methylprednisolone 4 mg tablets in 4 mg PO DIRECTED #21 tabs 01/30/22 a dose pack Allergies Allergy/AdvReac Type Severity Reaction Status Date / Time No Known Allergies Allergy Verified 01/30/22 10:49 [facility] Disclaimer: The information contained in this section may have been updated after the patient was seen, as this information can be updated by other users. Medical History Kidney stone Migraine Urinary tract infection Surgical History History of cholecystectomy History of hysterectomy History of tubal ligation Social History Smoking Status: Current every day smoker tobacco type: cigarettes packs per day: 1 [employer]
[2022-01-30 10:47] VITALS: BP 123/75; PULSE 87; RESP 16; TEMP 36.9; O2SAT 98; BMI 30.2
[2022-01-30 10:53] LABS: UTC Strep Screen (Rapid) Positive (Negative)
[2022-01-30 11:37] VITALS: BP 123/75; PULSE 87; RESP 16; TEMP 36.9
== END 2022-01-30 11:38 | disposition home or self-care (01) ==
PROVIDERS: Emergency Provider Nurse Practitioner Family; PCP Emergency Medicine
DX: J02.0 Streptococcal pharyngitis (principal); B95.0 Streptococcus, group A, as the cause of diseases classified elsewhere; R50.9 Fever, unspecified; R11.2 Nausea with vomiting, unspecified; R05.9 Cough, unspecified; M79.10 Myalgia, unspecified site; G43.909 Migraine, unspecified, not intractable, without status migrainosus; F17.210 Nicotine dependence, cigarettes, uncomplicated; Z79.51 Long term (current) use of inhaled steroids; Z79.52 Long term (current) use of systemic steroids; Z79.899 Other long term (current) drug therapy
CPT/HCPCS: 87880; 99213; G0463

== ENCOUNTER 2022-09-26 08:04 | Emergency (ER) | payer OTHER, SELFPAY ==
[2022-09-26 08:05] VITALS: BP 136/78; PULSE 94; RESP 16; TEMP 36.8; O2SAT 96; BMI 31.1
[2022-09-26 08:31] LABS: UTC Strep Screen (Rapid) Negative (Negative)
--- NOTE | 2022-09-26 08:36 | EXP.UTC ---
Discharge Plan Disposition Patient Disposition: Home, Self-Care Condition: Good Prescriptions Prescriptions: New prednisone 10 mg tablet 10 mg PO BID 3 Days Qty: 6 0RF azithromycin [Zithromax] 250 mg tablet 250 mg PO UD DOSE PK Qty: 6 0RF Rx Instructions: Take two (2) tablets today, then one (1) tablet days #2 thru #5 benzonatate [benzonatate] 100 mg capsule 100 mg PO TIDP PRN (Reason: Cough) Qty: 30 0RF No Action methylprednisolone 4 MG tablet 4 mg PO DIRECTED Qty: 21 0RF Rx Instructions: Take as directed on package instructions amoxicillin-pot clavulanate 1 EACH tablet 1 tab PO Q12H 7 Days Qty: 14 0RF promethazine 25 MG tablet 25 mg PO Q6H PRN (Reason: Nausea And Vomiting) Qty: 20 0RF oseltamivir 75 MG capsule 75 mg PO BID Qty: 10 0RF azithromycin 250 MG tablet 250 mg PO UD DOSE PK Qty: 6 0RF Rx Instructions: Take two (2) tablets today, then one (1) tablet days #2 thru #5 benzonatate 100 MG capsule 100 mg PO TIDP PRN (Reason: Cough) Qty: 30 0RF methylprednisolone 4 MG tablets,dose pack 4 mg PO DIRECTED 6 Days Qty: 21 0RF guaifenesin [Mucinex] 600 mg tablet extended release 12hr 600 mg PO BID PRN (Reason: cough) Qty: 20 0RF benzonatate 100 mg capsule 100 mg PO TID PRN (Reason: cough) Qty: 30 0RF methylprednisolone 4 mg Tablets,Dose Pack 4 mg PO DIRECTED Qty: 21 0RF amoxicillin-pot clavulanate 500-125 mg tablet 1 tab PO BID Qty: 20 0RF cefdinir 300 mg capsule 300 mg PO BID Qty: 20 0RF phenazopyridine [Pyridium] 200 mg tablet 200 mg PO Q8H 2 Days Qty: 6 0RF Referrals Follow up/Referrals: Vinnie Barnes MD [Primary Care Provider] - See instructions Activity Restrictions/Add. Instructions Additional Instructions/Restrictions: Drink plenty of fluids. Take tylenol or ibuprofen for pain or fever. Take the medications as directed. Follow up with your regular doctor. GO TO THE ER FOR ANY WORSENING SYMPTOMS Clinical Impressions Clinical Impression: Pharyngitis Instructions Patient Instructions: Strep Throat, DI for Strep Throat Discharge ED Provider: Jimbo Koch [facility] [place] HPI General Stated complaint: sore throat,headache,fever Mode of Arrival: Ambulatory Source of Information: Patient Limitations: No Limitations Time Seen by Provider: 09/26/22 08:35 Description of Symptoms (Recalled from Triage Doc. by RN): Patient reports possible strep. Complaint of a sore throat. HEENT Symptoms (Recalled from RN notes): Yes Resp Symptoms (Recalled from RN notes): No Skin Symptoms (Recalled from RN notes): No MS Symptoms (Recalled from RN notes): No Functional Status (Recalled from RN notes): wnl History of Present Illness Provider Complaint: She reports that she has had sore throat for the past 3 days. Related Data Previous Rx's Medication Instructions Recorded amoxicillin 875 mg-potassium 1 tab PO Q12H 7 days #14 tabs 07/16/20 clavulanate 125 mg tablet methylprednisolone 4 mg tablet 4 mg PO DIRECTED #21 tabs 07/16/20 oseltamivir 75 mg capsule 75 mg PO BID #10 caps 06/02/21 promethazine 25 mg tablet 25 mg PO Q6H PRN Nausea And 06/02/21 Vomiting #20 tabs azithromycin 250 mg tablet 250 mg PO UD DOSE PK #6 tabs 06/07/21 benzonatate 100 mg capsule 100 mg PO TIDP PRN Cough #30 caps 06/07/21 methylprednisolone 4 mg tablets in 4 mg PO DIRECTED 6 days #21 06/07/21 a dose pack packets cefdinir 300 mg capsule 300 mg PO BID #20 caps 01/04/22 phenazopyridine 200 mg tablet 200 mg PO Q8H pain 2 days #6 tabs 01/04/22 (Pyridium) benzonatate 100 mg capsule 100 mg PO TID PRN cough #30 caps 01/08/22 guaifenesin 600 mg tablet, 600 mg PO BID PRN cough #20 tabs 01/08/22 extended release 12 hr (Mucinex) amoxicillin 500 mg-potassium 1 tab PO BID #20 tabs 01/30/22 clavulanate 125 mg tablet methylprednisolone 4 mg tablets in 4 mg PO DIRECTED #21 tabs 01/30/22 a dose pack azithromycin 250
[2022-09-26 09:06] VITALS: BP 136/78; PULSE 94; RESP 16; TEMP 36.8; O2SAT 96
== END 2022-09-26 09:14 | disposition home or self-care (01) ==
PROVIDERS: Emergency Provider Nurse Practitioner Family; PCP Emergency Medicine
DX: J02.9 Acute pharyngitis, unspecified (principal); F17.210 Nicotine dependence, cigarettes, uncomplicated
CPT/HCPCS: 87880; 99212; 99214; G0463

== ENCOUNTER 2023-05-29 11:56 | Emergency (ER) | payer OTHER, SELFPAY ==
[2023-05-29 12:00] VITALS: BP 104/81; PULSE 107; RESP 20; TEMP 37.1; O2SAT 97; BMI 27.7
--- NOTE | 2023-05-29 12:12 | ED_ITS ---
Discharge Plan Disposition Patient Disposition: Home, Self-Care Condition: Good Prescriptions Prescriptions: New penicillin V potassium 500 mg tablet 500 mg PO BID Qty: 20 0RF Referrals Follow up/Referrals: Addy Jones DO [Primary Care Provider] - See instructions Activity Restrictions/Add. Instructions Additional Instructions/Restrictions: *Monitor Temp, Over the counter Motrin or Tylenol as directed/as needed Tylenol every 4 hours and Motrin every 6 hours (as long as your family doctor has told you that you can take it) for fever or pain. and straight to ER if unable to lower temp less than 101.0 after medication given *Warm salt water gargles may help to soothe the throat *Throat Lozenges? *Warm fluids like tea with honey may help to soothe the throat? *Sleep elevated *Humidifier/Vaporizer *If you did not take Penicillin shot or was unable to, start taking antibiotic immediately and make sure that you take it for the FULL length of time although you should start to feel better in 24-48 hours *change toothbrush and toothpaste 24-48 hours after starting to take antibiotics so you do not reinfect yourself Monitor Temp. Tylenol and/or Ibuprofen as needed. ER if fever is no less than 101 despite alternating Tylenol and Ibuprofen * Encourage fluids, water, Gatorade, powerade, pedialyte if infant/toddler/or child *Cold fluids, popsicles and ice cream may feel good on his throat Follow up IMMEDIATELY for new or worsening symptoms or no Noticeable improvement over the next 48-72 hours. 911 for difficulty breathing or swallowing Clinical Impressions Clinical Impression: Strep throat Instructions Patient Instructions: DI for Strep Throat, Strep Throat Discharge ED Provider: Cristel Dawn [facility] [place], [place] HPI General Stated complaint: sore throat,fever,chills Mode of Arrival: Ambulatory Source of Information: Patient Limitations: No Limitations Time Seen by Provider: 05/29/23 12:12 Description of Symptoms (Recalled from Triage Doc. by RN): PATIENT C/O SORE THROAT, FEVER AND CHILLS THAT STARTED THIS MORNING HEENT Symptoms (Recalled from RN notes): Yes Resp Symptoms (Recalled from RN notes): No Skin Symptoms (Recalled from RN notes): No MS Symptoms (Recalled from RN notes): No Functional Status (Recalled from RN notes): WNL History of Present Illness Provider Complaint: Patient states that she woke up in the middle of the night having a headache and she took her medication thinking she had a migraine states that then when she woke up her throat was hurting when she would swallow and noticed she had spots all over her tonsils so she came in Related Data Previous Rx's Medication Instructions Recorded penicillin V potassium 500 mg 500 mg PO BID #20 tabs 05/29/23 tablet Allergies Allergy/AdvReac Type Severity Reaction Status Date / Time No Known Allergies Allergy Verified 01/30/22 10:49 Worker's Comp Is this a Worker's Comp case?: No [facility] Disclaimer: The information contained in this section may have been updated after the patient was seen, as this information can be updated by other users. Medical History Kidney stone Migraine Urinary tract infection Surgical History History of cholecystectomy History of hysterectomy History of tubal ligation Social History Smoking Status: Current every day smoker tobacco type: cigarettes packs per day: 1 second hand exposure: Yes alcohol intake: never substance use type: denies use current occupational status: other Travel in the last 8 weeks: None household members: children housing: apartment current occupation: Daycare caffeine: Yes ROS Obtained: Yes All systems reviewed & no additional complaints except as documented and Yes Systems reviewed as appropriate & no additional complaints except as documented Constitutional Constitutional: Reports system reviewed and no additional complaints, except as documented and Reports as per HPI ENT Ears, Nose, Mouth, and Throat: Reports system reviewed and no additional complaints, except as documented, Reports as per HPI and Reports sore throat Cardiovascular Cardiovascular: Reports system reviewed and no additional complaints, except as documented and Reports as per HPI Respiratory Respiratory: Reports system reviewed and no additional complaints, except as documented and Reports as per HPI Gastrointestinal Gastrointestingal: Reports system reviewed and no additional complaints, except as documented and as per HPI Physical Exam General General appearance: alert and in no apparent distress ENT ENT exam: Present mucous membranes moist Expanded ENT Exam Throat exam: Present tonsillar erythema and tonsillar exudate Respiratory Respiratory exam: Present normal lung sounds bilaterally; Absent respiratory distress Cardiovascular Cardiovascular exam: Present regular rate, normal rhythm and normal heart sounds Neurological Exam Neurological exam: Present alert, oriented X3 and normal gait Medical Decision Making Jorge Inquiry Pt receiving controlled substance: No Jorge was queried for this patient: No Vital Signs: 05/29/23 12:00 Temperature 98.7 F Temperature Source Oral Pulse Rate [Left Brachial] 107 H Respiratory Rate 20 Blood Pressure [Left Arm] 104/81 L Blood Pressure Mean [Left Arm] 88 Blood Pressure Source [Left Arm] Automatic Cuff Blood Pressure Position [Left Arm] Sitting 02 Sat by Pulse Oximetry 97 Oxygen Delivery Method Room Air Lab Data Lab results reviewed: Yes I reviewed the patient's lab results.
[2023-05-29 12:20] VITALS: BP 104/81; PULSE 107; RESP 20; TEMP 37.1; O2SAT 97
[2023-05-29 12:20] LABS: UTC Strep Screen (Rapid) Positive (Negative)
== END 2023-05-29 12:43 | disposition home or self-care (01) ==
PROVIDERS: Emergency Provider Nurse Practitioner; PCP Internal Medicine
DX: J02.0 Streptococcal pharyngitis (principal); R07.0 Pain in throat; R50.9 Fever, unspecified; F17.210 Nicotine dependence, cigarettes, uncomplicated
CPT/HCPCS: 87880; 99212; 99214; G0463

== ENCOUNTER 2023-09-02 15:50 | Emergency (ER) | payer SELFPAY ==
[2023-09-02 15:51] VITALS: BP 113/70; PULSE 93; RESP 16; TEMP 37.4; O2SAT 99; BMI 28.8
--- NOTE | 2023-09-02 16:18 | ED_ITS ---
Discharge Plan Disposition Patient Disposition: Home, Self-Care Condition: Good Prescriptions Prescriptions: New amoxicillin 875 mg tablet 875 mg PO Q12H Qty: 20 0RF methylprednisolone 4 mg Tablets,Dose Pack 4 mg PO DIRECTED 6 Days Qty: 21 0RF Rx Instructions: Take 1 pack as directed for 6 days Referrals Follow up/Referrals: Addy Jones DO [Primary Care Provider] - See instructions Activity Restrictions/Add. Instructions Additional Instructions/Restrictions: Drink plenty of fluids. Take tylenol or ibuprofen for pain or fever. Take the medications as directed. Follow up with your regular doctor. GO TO THE ER FOR ANY WORSENING SYMPTOMS Throw your tooth brush away and get a new one. Clinical Impressions Clinical Impression: Strep throat Instructions Patient Instructions: Strep Throat, DI for Strep Throat Discharge ED Provider: Jimbo Koch [facility] General Stated complaint: sore throat, congestion, fever Time Seen by Provider: 09/02/23 16:18 Related Data Previous Rx's Medication Instructions Recorded amoxicillin 875 mg tablet 875 mg PO Q12H #20 tabs 09/02/23 methylprednisolone 4 mg tablets in 4 mg PO DIRECTED 6 days #21 tabs 09/02/23 a dose pack Allergies Allergy/AdvReac Type Severity Reaction Status Date / Time No Known Allergies Allergy Verified 09/02/23 16:20 [facility] Disclaimer: The information contained in this section may have been updated after the patient was seen, as this information can be updated by other users. Medical History Kidney stone Migraine Urinary tract infection Surgical History History of cholecystectomy History of hysterectomy History of tubal ligation Social History Smoking Status: Current every day smoker tobacco type: cigarettes packs per day: 1 second hand exposure: Yes alcohol intake: never substance use type: denies use current occupational status: other Travel in the last 8 weeks: None household members: children housing: apartment current occupation: Daycare caffeine: Yes ROS Obtained: Yes All systems reviewed & no additional complaints except as documented Constitutional Constitutional: Reports chills and Reports fever(s) Eyes Eyes: Denies eye discharge ENT Ears, Nose, Mouth, and Throat: Reports as per HPI Cardiovascular Cardiovascular: Denies chest pain Respiratory Respiratory: Denies chest congestion and Reports cough Gastrointestinal Gastrointestingal: Reports nausea; Denies abdominal pain, constipation, c ramping, diarrhea or vomiting Musculoskeletal Musculoskeletal: Denies arthralgias Integumentary/Breasts Skin/Breast: Denies rash Neurologic Neurologic: Denies paresthesias Physical Exam General General appearance: alert and in no apparent distress Head Head exam: atraumatic, normocephalic and normal inspection Eye Eye exam: Present normal appearance, PERRL and EOMI ENT ENT exam: Present mucous membranes moist and normal external ear exam Expanded ENT Exam TM/Canal exam: Bilateral TM: erythema and bulging Nose exam: Absent sinus tenderness Mouth exam: Present normal external inspection; Absent drooling Teeth exam: Present normal inspection Throat exam: Present tonsillar erythema, tonsillomegaly and tonsillar exudate Neck Neck exam: Present normal inspection, full ROM and trachea midline; Absent tenderness, meningismus or lymphadenopathy Chest Chest inspection: Present normal inspection and symmetric chest wall rise; Absent tenderness Respiratory Respiratory exam: Present normal lung sounds bilaterally; Absent respiratory distress, wheezes, stridor or accessory muscle use Cardiovascular Cardiovascular exam: Present regular rate and normal rhythm; Absent systolic murmur or diastolic murmur Abdominal Exam Abdominal exam: Present soft and normal bowel sounds; Absent distention, tenderness, guarding, rebound or rigidity Extremities Exam Extremities exam: Present normal inspection and normal capillary refill; Absent calf tenderness Back Exam Back exam: Present normal inspection and full ROM; Absent tenderness, CVA tenderness (R) or CVA tenderness (L) Neurological Exam Neurological exam: Present alert, oriented X3 and CN II-XII intact Psychiatric Psychiatric exam: Present normal affect and normal mood Skin Skin exam: Present warm, dry, intact and normal color Medical Decision Making Medical Records Medical records reviewed: No I reviewed the patient's medical records. Jorge Inquiry Pt receiving controlled substance: No Lab Data Lab results reviewed: Yes I reviewed the patient's lab results.
[2023-09-02 16:47] VITALS: BP 113/70; PULSE 93; RESP 15; TEMP 37.4; O2SAT 99
== END 2023-09-02 16:47 | disposition home or self-care (01) ==
PROVIDERS: Emergency Provider Nurse Practitioner Family; PCP Internal Medicine
DX: J02.0 Streptococcal pharyngitis (principal); R50.9 Fever, unspecified; R09.81 Nasal congestion
CPT/HCPCS: 99212; 99214; G0463